=== PATIENT | male | born 1935 | race Caucasian/White ===

== ENCOUNTER 2018-03-02 10:38 | Emergency (ER) | payer MEDICARE, BC ==
[2018-03-02 11:10] VITALS: RESP 18
[2018-03-02] MEDS ORDERED: DICLOXACILLIN 250 MG CAPSULE PO STA (12:05)
--- NOTE | 2018-03-02 12:11 | ED ---
General Adult HPI - General Chief complaint: Extremity Injury, Upper Stated complaint: RT ELBOW PAIN Time Seen by Provider: 03/02/18 12:00 Source: patient, RN notes reviewed Mode of arrival: ambulatory Limitations: no limitations - History of Present Illness Initial comments: This is an 82-year-old male who presents emergency Department with an right olecranon bursitis. Patient states she's had this 3 or 4 times in the past and had it drained per patient states today he came in because the area was a little more tender and slightly reddened which is not normal. Patient states he has an appointment with the orthopedic surgeon on Saturday but didn't want to wait that long. Patient denies any fevers patient denies any chills patient denies any streaking of the redness. Patient states is just at the area of swelling. Patient has full range motion of the elbow he just feels a little tighter when he fully flexes. - Related Data Home Medications Medication Instructions Recorded Confirmed Aspirin 81 mg PO DAILY 10/23/13 03/02/18 Metoprolol Tartrate [Lopressor] 12.5 mg PO DAILY 01/04/15 03/02/18 Multivitamin/Iron/Folic Acid 1 tab PO DAILY 03/02/18 03/02/18 [Centrum Adults Tablet] Previous Rx's Medication Instructions Recorded Dicloxacillin [Dynapen] 500 mg PO Q8H 10 Days capsule 03/02/18 Allergies Allergy/AdvReac Type Severity Reaction Status Date / Time No Known Allergies Allergy Verified 03/02/18 11:51 Review of Systems ROS Statement: Those systems with pertinent positive or pertinent negative responses have been documented in the HPI. ROS Other: All systems not noted in ROS Statement are negative. Past Medical History Past Medical History: Cancer, Hypertension Additional Past Medical History / Comment(s): varicose veins, arrthymia,, hx prostate cancer History of Any Multi-Drug Resistant Organisms: None Reported Past Surgical History: Cardiac Valve Replacement, Heart Catheterization With Stent, Hernia Repair, Orthopedic Surgery, Prostate Surgery, Tonsillectomy Additional Past Surgical History / Comment(s): 3 fingers amputated left hand, cataracts, cardiac valve sugery 07/31/2013. ( one replaced and one repaired). Past Anesthesia/Blood Transfusion Reactions: No Reported Reaction Date of Last Stent Placement:: 07/2013 Past Psychological History: No Psychological Hx Reported Smoking Status: Former smoker Past Alcohol Use History: Occasional Past Drug Use History: None Reported - Past Family History Brother(s) Family Medical History: Cancer General Exam - General Exam Comments Initial Comments: GENERAL Patient is well-developed and well-nourished. Patient is in mild distress. EYES Patient's pupils are equal and round. Extraocular motion is intact SKIN Unremarkable NEURO The patient is alert and oriented 3 PYSCH Patient has normal interpersonal interactions. MUSCULOSKELETAL Patient's right elbow has an olecranon bursitis is slightly erythematous and very minimally tender. Patient's has full range of motion of his elbow Limitations: no limitations Course Vital Signs 03/02/18 11:08 Temperature 97.8 F Pulse Rate 55 L Respiratory 18 Rate Blood Pressure 137/61 O2 Sat by Pulse 98 Oximetry Procedures - Joint Aspiration/Injection Consent Obtained: verbal consent Time Out Performed: Yes Indications: to relieve pressure/pain Side of Body: right Joint Aspirated: elbow Ultrasound Guidance: No Skin Prep: Povidone-Iodine1% Local Anesthesia Used: Lidocaine 1% Amount of Anesthesia Used (mLs): 2 Needle Size Used: 22G Syringe Size Used: 20cc Fluid Obtained: clear Total Fluid Obtained (mls): 10 Patient Tolerated Procedure: well Complications: none Disposition Clinical Impression: Septic olecranon bursitis Disposition: HOME SELF-CARE Condition: Good Additional Instructions: Patient should still follow up with his orthopedic surgeon as soon as possible Patient should return to emergency department if the area of swelling is worse and there is fevers increased redness or increased pain. Patient should apply antibacterial ointment to the area twice a day and keep it wrapped while awake. Prescriptions: Dicloxacillin [Dynapen] 500 mg PO Q8H 10 Days capsule Is patient prescribed a controlled substance at d/c from ED?: No Referrals: Emilio Wright MD [Primary Care Provider] - 1-2 days Time of Disposition: 12:11
[2018-03-02 12:41] VITALS: BP 130/78; PULSE 60; TEMP 97.6
[2018-03-02 13:39] LABS: Appearance,BF Cloudy; Nucleated Cells, Body Fluid 3025 /uL; RBC, Body Fluid 7925 /uL
[2018-03-02 13:43] LABS: Mononuclear WBC,Body Fluid 12 %; Polynuclear WBC,Body Fluid 88 %; Total Cells Counted,Body Fluid 100
== END 2018-03-02 12:40 | disposition home or self-care (01) ==
LOC: EC 10:38
DX: M71.121 Other infective bursitis, right elbow (principal); I10 Essential (primary) hypertension; Z87.891 Personal history of nicotine dependence; Z79.82 Long term (current) use of aspirin; Z79.899 Other long term (current) drug therapy; Z85.46 Personal history of malignant neoplasm of prostate; Z95.2 Presence of prosthetic heart valve; Z95.5 Presence of coronary angioplasty implant and graft; Z98.890 Other specified postprocedural states
CPT/HCPCS: 20605; 87070; 87205; 89050; 99283

== ENCOUNTER → 2018-10-01 | Outpatient (CLI) | payer MEDICARE, BC ==
--- NOTE | 2018-10-08 17:05 | EEG ---
ELECTROENCEPHALOGRAM REPORT DATE OF SERVICE: 10/01/2018 VIDEO ELECTRONYSTAGMOGRAPHIC REPORT: VNG INDICATIONS: Nh[age]old male with dizziness ongoing for one year, sudden onset, slowly improving. Spells occurring 1-2 times a week, lasting 2-3 minutes at a time, and can be precipitated by looking up or head-back position, bending over or head-down position, or movements of the head. He reports bilateral hearing loss. VNG FINDINGS: Saccades shows intact peak velocities, accuracies and latencies. Gaze with fixation shows no nystagmus in any of the directions of gaze, including centrally with vision denied. Tracking shows no significant breakups. Optokinetic nystagmus shows asymmetry at both faster and slower speeds, greater than 50%. Static position testing shows no nystagmus in any of the positions tested in the seated, supine, head-right and head-left. The right side and left side could not be tested due to limited mobility. Dynamic position testing could not be completed due to limited mobility of the patient. Caloric testing shows 8% weakness in the right ear, which is within normal limits. IMPRESSION: VNG testing showing multiple indicators favoring central nervous system dysfunction. Abnormal calorics without signs for vestibulopathy. No nystagmus encountered throughout the record. Dynamic position testing could not be performed due to limited patient mobility, and so benign positional vertigo not excluded by testing. Clinical correlation necessary. TAWANA / AMANDAN: [id number] /
== END | disposition home or self-care (01) ==
LOC: NEUROMAIN 06:29
PROVIDERS: ATTEND Otolaryngology
DX: R42 Dizziness and giddiness (principal)
CPT/HCPCS: 92537; 92540

== ENCOUNTER → 2018-10-29 | Outpatient (CLI) | payer MEDICARE, BC ==
--- NOTE | 2018-10-30 07:56 | MR ---
EXAMINATION TYPE: MR iac wo/w con DATE OF EXAM: 10/29/2018 COMPARISON: CT brain January 04, 2015. MRI brain April 19, 2015. HISTORY: Vertigo, Sensorineural hearing loss. Right-sided hearing loss per patient. TECHNIQUE: Multiplanar, multisequence images of the brain and brainstem is performed without and with IV contras t, utilizing 6.5 mL intravenous Gadavist . Acoustic nerve disorder protocol. FINDINGS: Diffusion weighted images demonstrate no evidence of a recent infarct or other diffusion ab normality. There is no worrisome extra-axial fluid collection diffuse ventricular and sulcal promine nce is redemonstrated. There are focal confluent areas of T2 hyperintensity seen throughout the white matter bilaterally most prominent at periventricular levels. Lesions are present and bases approxima tely the proximal vessel ischemic change in patient of this age. No significant change or progression from prior MRI.. Midline structures demonstrate normal morphology. The craniocervical junction appears within normal limits. Normal vascular flow voids are seen. Incidental dominant right vertebral artery really demons trated. Nasal septum deviated to right of midline. Mild mucosal thickening bilateral ethmoid sinuses is redemonstrated. Globes are intact bilaterally. No suspicious fluid signal bilateral mastoid air cells. Vestibular cochlear complexes are symmetric a nd felt within normal limits. No suspicious enhancing cerebellopontine angle mass is identified bilat erally. IMPRESSION: 1. No suspicious new or acute finding is seen to account for patient's symptoms of right-sided hearin g loss and vertigo. 2. Redemonstration of background mild diffuse cerebral atrophy and moderate to advanced chronic small vessel ischemic change. No significant change or progression from 2016 MRI
== END | disposition home or self-care (01) ==
LOC: RADMRIMAIN 16:19
PROVIDERS: ATTEND Otolaryngology
DX: G31.89 Other specified degenerative diseases of nervous system (principal); I67.82 Cerebral ischemia
CPT/HCPCS: 70553; A9585

== ENCOUNTER 2018-12-29 07:21 | Inpatient (IN) | payer MEDICARE, BC ==
--- NOTE | 2018-12-29 07:51 | ED ---
Wound/Laceration HPI - General Chief Complaint: Wound/Laceration Stated Complaint: finger infection Time Seen by Provider: 12/29/18 07:24 Source: patient, EMS, RN notes reviewed Mode of arrival: EMS Limitations: no limitations - History of Present Illness Initial Comments: 83-year-old male presents emergency Department chief complaint of right hand second digit finger pain, swelling. Patient states that he had an abscess opened up by orthopedics or Dr. Gould. Patient states that he was not discharged with any medications. Patient states that the pain has increased states this has been throbbing and he states he took off the dressing yesterday as directed and noticed that there was redness and drainage. Patient states the redness has increased over nighttime. Patient states that there was an abscess that they drained causing his nail to pop up. - Related Data Home Medications Medication Instructions Recorded Confirmed Metoprolol Tartrate [Lopressor] 12.5 mg PO DAILY 01/04/15 12/29/18 Multivitamin/Iron/Folic Acid 1 tab PO DAILY 03/02/18 12/29/18 [Centrum Adults Tablet] Vit C/E/Zn/Coppr/Lutein/Zeaxan 1 cap PO BID 12/29/18 12/29/18 [Preservision Areds 2 Softgel] Allergies Allergy/AdvReac Type Severity Reaction Status Date / Time No Known Allergies Allergy Verified 12/29/18 08:15 Review of Systems ROS Statement: Those systems with pertinent positive or pertinent negative responses have been documented in the HPI. ROS Other: All systems not noted in ROS Statement are negative. Past Medical History Past Medical History: Cancer, Hypertension Additional Past Medical History / Comment(s): varicose veins, arrthymia,, hx prostate cancer History of Any Multi-Drug Resistant Organisms: None Reported Past Surgical History: Cardiac Valve Replacement, Heart Catheterization With Stent, Hernia Repair, Orthopedic Surgery, Prostate Surgery, Tonsillectomy Additional Past Surgical History / Comment(s): 3 fingers amputated left hand, cataracts, cardiac valve sugery 07/31/2013. ( one replaced and one repaired). Past Anesthesia/Blood Transfusion Reactions: No Reported Reaction Date of Last Stent Placement:: 07/2013 Past Psychological History: No Psychological Hx Reported Smoking Status: Former smoker Past Alcohol Use History: Occasional Past Drug Use History: None Reported - Past Family History Brother(s) Family Medical History: Cancer General Exam Limitations: no limitations General appearance: alert, in no apparent distress Head exam: Present: atraumatic, normocephalic, normal inspection Respiratory exam: Present: normal lung sounds bilaterally. Absent: respiratory distress, wheezes, rales, rhonchi, stridor Cardiovascular Exam: Present: regular rate, normal rhythm, normal heart sounds. Absent: systolic murmur, diastolic murmur, rubs, gallop, clicks Extremities exam: Present: other (Right hand second digit there is an open wound noted on the distal tip with sutures in place, there is small amount of drainage, erythema that extends towards the MCP region, tenderness with palpation limited range of motion secondary to pain, there is some peeling noted of the nail, cap refill less than 2 seconds) Skin exam: Present: warm, dry Course Vital Signs 12/29/18 07:26 Temperature 98.4 F Pulse Rate 83 Respiratory 16 Rate Blood Pressure 160/82 O2 Sat by Pulse 98 Oximetry Medical Decision Making - Medical Decision Making Patient did have x-rays which shows arthritic changes no bony obstruction patient was evaluated by Paola with orthopedics associate in emergency department recommends patient be admitted to Dr. sewell will be placed on antibiotics. Disposition Clinical Impression: Cellulitis of finger of right hand Disposition: ADMITTED IP TO THIS HOSP Condition: Fair Referrals: Emilio Wright MD [Primary Care Provider] - 1-2 days
--- NOTE | 2018-12-29 08:08 | XR ---
EXAMINATION TYPE: XR finger RT DATE OF EXAM: 12/29/2018 COMPARISON: NONE HISTORY: 83-year-old male pain and erythema, cyst removed on Saturday. TECHNIQUE: 3 views coned down right index finger FINDINGS: Underlying degenerative change at the second DIP joint with joint space narrowing and marginal spurri ng as well as subchondral cystic change. There is irregularity of the overlying soft tissue suggestin g a wound. Additional moderate to severe degenerative change at the second and third MCP joints. 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 Soft tissue swelling and irregularity distal aspect of the index finger suggests a wound. No underlyi ng acute osseous abnormality seen.
[2018-12-29] MEDS ORDERED: VANCOMYCIN IV PER PHARMACY 1 EACH MISC MISCELLANE PRN (09:08)
[2018-12-29] MEDS ORDERED: ONDANSETRON 4 MG/2 ML VIAL IVP PRN (09:09)
[2018-12-29] MEDS ORDERED: IBUPROFEN 400 MG TAB PO PRN (09:09)
[2018-12-29] MEDS ORDERED: NALOXONE 0.4 MG/ML 1 ML VIAL IV PRN (09:09)
[2018-12-29] MEDS ORDERED: ACETAMINOPHEN TAB 325 MG TAB PO PRN (09:09)
[2018-12-29] MEDS ORDERED: VANCOMYCIN 1,250 MG in SODIUM CHLORIDE 0.9% 250 ML IVPB STA (09:11)
[2018-12-29 10:09] LABS: Basophils # (A) 0.1 k/uL (0-0.2); Basophils % (A) 1 %; Eosinophils # (A) 0.1 k/uL (0-0.7); Eosinophils % (A) 1 %; HGB 12.4 gm/dL (13.0-17.5); Lymphocytes # (A) 0.3 k/uL (1.0-4.8); Lymphocytes % (A) 3 %; MCH 30.3 pg (25.0-35.0); MCHC 32.7 g/dL (31.0-37.0); MCV 92.8 fL (80.0-100.0); Mean Platelet Volume 8.4; Monocytes # (A) 0.7 k/uL (0-1.0); Monocytes % (A) 6 %; Neutrophils # (A) 9.1 k/uL (1.3-7.7); Neutrophils % (A) 87 %; Platelet Count 173 k/uL (150-450); RBC 4.09 m/uL (4.30-5.90); WBC 10.5 k/uL (3.8-10.6)
[2018-12-29 10:19] LABS: Calcium 8.8 mg/dL (8.4-10.2); Potassium 4.6 mmol/L (3.5-5.1)
[2018-12-29] MEDS: HYDROcodone/APAP 5-325MG 1 EACH TAB PO PRN ×2 (10:22→14:40)
--- NOTE | 2018-12-29 14:53 | P.HPOR ---
History of Present Illness H&P Date: 12/29/18 Chief Complaint: Right index finger cellulitis The patient is an 83 year old male who is known to our practice and underwent a right index finger DIP ganglion cyst excision and joint debridement on 12/26/[address] Marshall Gould at [facility]. He states the finger was feeling ok until yesterday when he noticed increased swelling and redness. He removed the operative dressing as instructed yesterday and noticed the finger was very swollen and redness extending into the base of the finger. There is stiffness and some numbness to the finger as well. He has been experiencing chills and shaking since yesterday. Denies fevers. He proceeded to the emergency department this morning. We were called for further evaluation and management. Review of Systems Constitutional: Reports chills, Denies fatigue, Denies fever Cardiovascular: Denies chest pain, Denies shortness of breath Respiratory: Denies cough Gastrointestinal: Denies abdominal pain, Denies diarrhea, Denies nausea, Denies vomiting Musculoskeletal: right: hand pain, hand stiffness, hand swelling Past Medical History Past Medical History: Cancer, Hypertension Additional Past Medical History / Comment(s): varicose veins, arrthymia,, hx prostate cancer History of Any Multi-Drug Resistant Organisms: None Reported Past Surgical History: Cardiac Valve Replacement, Heart Catheterization With Stent, Hernia Repair, Orthopedic Surgery, Prostate Surgery, Tonsillectomy Additional Past Surgical History / Comment(s): 3 fingers amputated left hand, cataracts, cardiac valve sugery 07/31/2013. ( one replaced and one repaired). Past Anesthesia/Blood Transfusion Reactions: No Reported Reaction Date of Last Stent Placement:: 07/2013 Past Psychological History: No Psychological Hx Reported Smoking Status: Former smoker Past Alcohol Use History: Occasional Past Drug Use History: None Reported - Past Family History Brother(s) Family Medical History: Cancer Medications and Allergies Home Medications Medication Instructions Recorded Confirmed Type Metoprolol Tartrate [Lopressor] 12.5 mg PO DAILY 01/04/15 12/29/18 History Multivitamin/Iron/Folic Acid 1 tab PO DAILY 03/02/18 12/29/18 History [Centrum Adults Tablet] Vit C/E/Zn/Coppr/Lutein/Zeaxan 1 cap PO BID 12/29/18 12/29/18 History [Preservision Areds 2 Softgel] Allergies Allergy/AdvReac Type Severity Reaction Status Date / Time No Known Allergies Allergy Verified 12/29/18 08:15 Physical Examination The patient is an 83 y/o male in no acute distress. He is alert and oriented x3. Exam of the right index finger reveals diffuse swelling of the entire finger. Erythema is present and extends into the distal hand at the base of the right index finger. No proximal swelling or red streaking noted. Sanguineous drainage is present to the incision site. No purulent drainage or fluid collection noted. One suture is in place. There is limited ROM of the finger due to pain, guarding and swelling. Decreased sensation to the finger is present. The finger is warm and well perfused. Capillary refill <2 seconds. Results Two views of the right index finger reveal arthritic changes to the DIP joint. No bony destruction or fracture seen. - Labs Labs: Abnormal Lab Results - Last 24 Hours (Table) 12/29/18 12/29/18 Range/Units 09:47 09:47 RBC 4.09 L (4.30-5.90) m/uL Hgb 12.4 L (13.0-17.5) gm/dL Hct 38.0 L (39.0-53.0) % Neutrophils # 9.1 H (1.3-7.7) k/uL Lymphocytes # 0.3 L (1.0-4.8) k/uL Chloride 109 H (98-107) mmol/L Carbon Dioxide 20 L (22-30) mmol/L Creatinine 1.27 H (0.66-1.25) mg/dL H & H 12/29/18 Range/Units 09:47 Hgb 12.4 L (13.0-17.5) gm/dL Hct 38.0 L (39.0-53.0) % Result Diagrams: 12/29/18 09:47 12/29/18 09:47 Assessment and Plan (1) Pain in right hand Current Visit: Yes Status: Acute Code(s): M79.641 - PAIN IN RIGHT HAND SNOMED Code(s): 94592230 (2) Cellulitis of finger of right hand Current Visit: Yes Status: Acute Code(s): L03.011 - CELLULITIS OF RIGHT FINGER SNOMED Code(s): 62652184 Plan: The clinical and x-ray findings were discussed with the patient. The patient has been examined by Dr. Marshall Gould as well. We are recommending admission for IV antibiotics and evaluation by infectious disease. A consult for Dr. Moreno has been placed. He will be started on Vancomycin until seen by ID. The one suture was removed today and the wound was cleansed. Moist heat compressions have been ordered. The wound can be cleansed with soap and water at least daily. Range of motion of the finger was encouraged. Surgical drainage and debridement may be needed if he fails to improve with the current treatment plan. We will continue to follow the patient closely and make further recommendations depending on his course.
[2018-12-29] MEDS ORDERED: CALCIUM CARBONATE 500 MG CHEWABLE PO PRN (18:36)
[2018-12-29] MEDS: VIT A,C & E-LUTEIN-MINERALS 1 EACH TAB PO SCH (22:14)
--- NOTE | 2018-12-29 23:35 | P.CONS ---
History of Present Illness - Reason for Consult Consult date: 12/29/18 - History of Present Illness 83-year-old male who's been having difficulties with his right hand. He was having difficulty with a ganglion cyst on the index finger. Last week he underwent a debridement to this area and was doing relatively well until the day before he presents to Hospital. At that point in time he noticed some significant increasing discomfort swelling to the hand finger and the onset of stiffness some increasing numbness and feeling very poorly. He developed a fever with chills and rigors because they presents to Hospital for further evaluation. The patient is alert evidence of the significant swelling erythema and tenderness to that index finger. He is available orthopedics and there is been some manipulation. There has been some drainage which is now decreased. He's feeling better since coming to hospital. He is denying significant nausea or emesis but appetite is poor. He has not had this type of trouble in the past. Review of Systems HEENT:Denies headache or acute visual change. Denies sinus or mouth discomforts. Denies neck stiffness or pain. Denies significant oral cavity pain. Denies difficulty on swallowing. Lungs: Denies significant shortness of breath, cough, sputum production, or hemoptysis. Cardiovascular: Denies significant shortness of breath, chest pain, chest wall pain, orthopnea, dyspnea on exertion, syncope Gastrointestinal:Denies nausea, vomiting, diarrhea, constipation, hematemesis, melena, hematochezia. No no significant change of bowel habit noticed. Musculoskeletal: Pain and swelling to the right hand Skin: Redness to the right index finger and onto the dorsum of the hand Neuro: Denies headache or visual change. Denies any new onset weakness or difficulty with ambulation. Denies falls or seizures. Psychiatric:Denies anxiety or depression. Endocrine: Denies significant fatigue, denies significant weight loss or weight gain. Past Medical History Past Medical History: Cancer, Hypertension Additional Past Medical History / Comment(s): varicose veins, arrthymia,, hx prostate cancer History of Any Multi-Drug Resistant Organisms: None Reported Past Surgical History: Cardiac Valve Replacement, Heart Catheterization With Stent, Hernia Repair, Orthopedic Surgery, Prostate Surgery, Tonsillectomy Additional Past Surgical History / Comment(s): 3 fingers amputated left hand, cataracts, cardiac valve sugery 07/31/2013. ( one replaced and one repaired). Past Anesthesia/Blood Transfusion Reactions: No Reported Reaction Date of Last Stent Placement:: 07/2013 Past Psychological History: No Psychological Hx Reported Additional Psychological History / Comment(s): Retired. No experience. No recent travel. Has stopped tobacco smoking. No animal exposures Smoking Status: Former smoker Past Alcohol Use History: Occasional Past Drug Use History: None Reported - Past Family History Brother(s) Family Medical History: Cancer Medications and Allergies Home Medications and Allergies Comment(s): Current Medications Acetaminophen (Tylenol Tab) 650 mg PO Q6HR PRN PRN Reason: Mild Pain or Fever > 100.5 Last Admin: 12/29/18 13:20 Dose: 650 mg Documented by: Hydrocodone Bitart/Acetaminophen ([place] 5-325) 1 each PO Q4HR PRN PRN Reason: Moderate Pain Last Admin: 12/29/18 14:40 Dose: 1 each Documented by: Calcium Carbonate/Glycine (Tums) 1,000 mg PO QID PRN PRN Reason: Heartburn Last Admin: 12/29/18 19:49 Dose: 1,000 mg Documented by: Vancomycin HCl 1,250 mg/ (Sodium Chloride) 250 mls @ 125 mls/hr IVPB Q18H [facility] Ibuprofen (Motrin) 400 mg PO Q6HR PRN PRN Reason: Mild Pain or Fever > 100.5 Metoprolol Tartrate (Lopressor) 12.5 mg PO DAILY [facility] Miscellaneous Information (Pharmacy To Dose Iv Vancomycin) 1 each MISCELLANE DIRECTED PRN PRN Reason: Per Protocol Multivitamins (Theragran) 1 each PO DAILY [facility] Multivitamins/Minerals (Ivite) 1 each PO BID [facility] Last Admin: 12/29/18 22:14 Dose: 1 each Documented by: Naloxone HCl (Narcan) 0.2 mg IV Q2M PRN PRN Reason: Opioid Reversal Ondansetron HCl (Zofran) 4 mg IVP Q8HR PRN PRN Reason: Nausea And Vomiting Home Medications Medication Instructions Recorded Confirmed Type Metoprolol Tartrate [Lopressor] 12.5 mg PO DAILY 01/04/15 12/29/18 History Multivitamin/Iron/Folic Acid 1 tab PO DAILY 03/02/18 12/29/18 History [Centrum Adults Tablet] Vit C/E/Zn/Coppr/Lutein/Zeaxan 1 cap PO BID 12/29/18 12/29/18 History [Preservision Areds 2 Softgel] Allergies Allergy/AdvReac Type Severity Reaction Status Date / Time No Known Allergies Allergy Verified 12/29/18 08:15 Physical Exam Vitals: Vital Signs Temp Pulse Pulse Resp BP BP BP 12/29/18 21:45 99.3 F 77 20 135/71 12/29/18 14:50 97.4 F L 84 16 142/69 12/29/18 14:00 98.2 F 70 16 146/71 12/29/18 13:00 72 17 127/65 12/29/18 12:00 72 17 120/64 12/29/18 11:00 70 17 136/72 12/29/18 10:21 71 16 12/29/18 10:00 74 16 136/72 12/29/18 07:26 98.4 F 83 16 160/82 Pulse Ox 12/29/18 21:45 95 12/29/18 14:50 96 12/29/18 14:00 80 L 12/29/18 13:00 97 12/29/18 12:00 98 12/29/18 11:00 98 12/29/18 10:21 97 12/29/18 10:00 98 12/29/18 07:26 98 Intake and Output 12/29/18 12/29/18 12/30/18 14:59 22:59 06:59 Other: Voiding Method Toilet Urinal # Voids 1 Weight 65.771 kg Pleasant 83-year-old male of thin build not in distress. HEENT: Anicteric conjunctiva are pink and moist nasal mucosa grossly intact without significant lesions, there is no thrush. Neck: The neck is supple without significant lymphadenopathy or thyromegaly. Lungs: Good bilateral air entry without significant crackles or wheezing. There is no significant bronchial sounds. There is no egophony or dullness. Heart: Regular rate and rhythm with an audible S1-S2, no S3 no S4. There is no significant murmur click or rub, PMI was nondisplaced. Abdomen: Positive bowel sounds soft and nontender without palpable masses or organomegaly. There was no guarding or rebound. Extremities: The upper extremities reveal evidence of the significant swelling to the right index finger with some ascending erythema to the dorsum of the hand. However there is no significant ascending lymphangitis. There is no tender epitrochlear lymph node and there is no axillary lymphadenopathy to the right axilla. No other abnormal lymph nodes are noted. The lower extremities have no open wound. Neuro: Awake alert oriented to person place and time. There are no acute new gross focal sensory motor deficits. Results CBC & Chem 7: 12/29/18 09:47 12/29/18 09:47 Labs: Abnormal Lab Results - Last 24 Hours (Table) 12/29/18 12/29/18 Range/Units 09:47 09:47 RBC 4.09 L (4.30-5.90) m/uL Hgb 12.4 L (13.0-17.5) gm/dL Hct 38.0 L (39.0-53.0) % Neutrophils # 9.1 H (1.3-7.7) k/uL Lymphocytes # 0.3 L (1.0-4.8) k/uL Chloride 109 H (98-107) mmol/L Carbon Dioxide 20 L (22-30) mmol/L Creatinine 1.27 H (0.66-1.25) mg/dL Laboratory Results WBC 10.5 k/uL (3.8-10.6) 12/29/18 09:47 RBC 4.09 m/uL (4.30-5.90) L 12/29/18 09:47 Hgb 12.4 gm/dL (13.0-17.5) L 12/29/18 09:47 Hct 38.0 % (39.0-53.0) L 12/29/18 09:47 MCV 92.8 fL (80.0-100.0) 12/29/18 09:47 MCH 30.3 pg (25.0-35.0) 12/29/18 09:47 MCHC 32.7 g/dL (31.0-37.0) 12/29/18 09:47 RDW 13.0 % (11.5-15.5) 12/29/18 09:47 Plt Count 173 k/uL (150-450) 12/29/18 09:47 Neutrophils % 87 % 12/29/18 09:47 Lymphocytes % 3 % 12/29/18 09:47 Monocytes % 6 % 12/29/18 09:47 Eosinophils % 1 % 12/29/18 09:47 Basophils % 1 % 12/29/18 09:47 Neutrophils # 9.1 k/uL (1.3-7.7) H 12/29/18 09:47 Lymphocytes # 0.3 k/uL (1.0-4.8) L 12/29/18 09:47 Monocytes # 0.7 k/uL (0-1.0) 12/29/18 09:47 Eosinophils # 0.1 k/uL (0-0.7) 12/29/18 09:47 Basophils # 0.1 k/uL (0-0.2) 12/29/18 09:47 Sodium 138 mmol/L (137-145) 12/29/18 09:47 Potassium 4.6 mmol/L (3.5-5.1) 12/29/18 09:47 Chloride 109 mmol/L (98-107) H 12/29/18 09:47 Carbon Dioxide 20 mmol/L (22-30) L 12/29/18 09:47 Anion Gap 9 mmol/L 12/29/18 09:47 BUN 20 mg/dL (9-20) 12/29/18 09:47 Creatinine 1.27 mg/dL (0.66-1.25) H 12/29/18 09:47 Est GFR (CKD-EPI)AfAm 60 (>60 ml/min/1.73 sqM) 12/29/18 09:47 Est GFR (CKD-EPI)NonAf 52 (>60 ml/min/1.73 sqM) 12/29/18 09:47 Glucose 95 mg/dL (74-99) 12/29/18 09:47 Plasma Lactic Acid Donaldo 0.8 mmol/L (0.7-2.0) 12/29/18 09:47 Calcium 8.8 mg/dL (8.4-10.2) 12/29/18 09:47 Assessment and Plan (1) Cellulitis of finger of right hand Narrative/Plan: 83-year-old presents to Hospital with recent pain and swelling difficulties with use of his right hand and index finger after his recent ganglion cyst removal. There was edema and erythema and consequently cultures were obtained and the patient was admitted to hospital initiated vancomycin therapy. This is appropriate this point in time while cultures are pending. We'll await further input from the orthopedic team as to the depth of the current problem. If any debridement is been performed the depth of this would be helpful if there is tenosynovitis or osteomyelitis without finding the course of antibiotic therapy. If no further data available a bone scan will be requested to elucidate the extent of the difficulty. Pain control is adequate at this point in time. He is receiving a multivitamin. He knows elevate the hand at rest. Current Visit: Yes Status: Acute Code(s): L03.011 - CELLULITIS OF RIGHT FINGER SNOMED Code(s): 43451914 (2) Pain in right hand Current Visit: Yes Status: Acute Code(s): M79.641 - PAIN IN RIGHT HAND SNOMED Code(s): 20008474
[2018-12-30] MEDS: VANCOMYCIN 1,250 MG in SODIUM CHLORIDE 0.9% 250 ML IVPB SCH ×2 (04:09→22:49)
[2018-12-30] MEDS: HYDROcodone/APAP 5-325MG 1 EACH TAB PO PRN ×3 (04:13→19:03)
--- NOTE | 2018-12-30 08:40 | P.PN ---
Subjective Progress Note Date: 12/30/18 Principal diagnosis: Right index finger cellulitis The patient is an 83 y/o male who we admitted yesterday for a post-operative infection/cellulitis to the right index finger. He was started on Vancomycin yesterday and moist heat compression were ordered. Today, he states he is feeling better and the chills have resolved. The redness in the finger has improved as well. Dr. Moreno evaluated the patient yesterday and recommended continuing the Vanco. A bone scan will possibly be ordered if surgery is not planned to evaluate the extent of the infection. No new complaints or issues today. Objective - Vital Signs Vital signs: Vital Signs Temp 98.5 F 12/30/18 04:20 Pulse 70 12/30/18 04:20 Resp 20 12/30/18 04:20 BP 124/72 12/30/18 04:20 Pulse Ox 97 12/30/18 04:20 Intake & Output 12/29/18 12/30/18 12/30/18 18:59 06:59 18:59 Weight 65.771 kg Other: Voiding Method Toilet Urinal # Voids 2 - Exam The patient is an 83-year-old male who is in no acute distress. He is alert and oriented 3. Exam of the right index finger reveals continued swelling the entire finger. Erythema has receded to the mid proximal phalanx level. No proximal swelling or red streaking noted. Dressing removed. There is some maceration around the incision site but no active drainage. No purulence noted. There is continued with limited range of motion of the fingers due to pain and swelling. Decreased sensation to the fingertip is present. No tenderness along the flexor tendon sheath. Tenderness to the fingertip is present as expected. There is warm and well-perfused. Capillary refill less than 2 seconds. - Labs CBC & Chem 7: 12/29/18 09:47 12/29/18 09:47 Labs: Abnormal Lab Results - Last 24 Hours (Table) 12/29/18 12/29/18 Range/Units 09:47 09:47 RBC 4.09 L (4.30-5.90) m/uL Hgb 12.4 L (13.0-17.5) gm/dL Hct 38.0 L (39.0-53.0) % Neutrophils # 9.1 H (1.3-7.7) k/uL Lymphocytes # 0.3 L (1.0-4.8) k/uL Chloride 109 H (98-107) mmol/L Carbon Dioxide 20 L (22-30) mmol/L Creatinine 1.27 H (0.66-1.25) mg/dL Assessment and Plan (1) Pain in right hand Current Visit: Yes Status: Acute Code(s): M79.641 - PAIN IN RIGHT HAND SNOMED Code(s): 66546903 (2) Cellulitis of finger of right hand Current Visit: Yes Status: Acute Code(s): L03.011 - CELLULITIS OF RIGHT FIN [place] SNOMED Code(s): 49961115 Plan: The clinical and x-ray findings were discussed with the patient. The case was discussed with Dr. Marshall Gould today. We do not suspect infective flexor tenosynovitis or osteomyelitis at this time. No surgical intervention is planned. We are recommending continued IV antibiotics per infectious disease r ecommendation. Moist heat compressions have been ordered but have not been completed since admission. The wound can be cleansed with soap and water throughout the day and allowed to dry to air. A bandaid may be applied if drainage is present. Range of motion and elevation of the finger was encou raged. He appears to be improving with antibiotics. Surgical drainage and debridement may be needed if he fails to improve with the current treatment plan. We will continue to follow the patient closely and make further recommendations depending on his course.
[2018-12-30] MEDS: VIT A,C & E-LUTEIN-MINERALS 1 EACH TAB PO SCH ×2 (08:56→19:56)
[2018-12-30] MEDS: MULTIVITAMINS, THERA 1 EACH TAB PO SCH (08:56)
[2018-12-30] MEDS: METOPROLOL TARTRATE 12.5 MG TAB PO SCH (08:56)
--- NOTE | 2018-12-30 17:47 | P.CONS ---
History of Present Illness - Reason for Consult Consult date: 12/30/18 HTN Requesting physician: Asael Gould - Chief Complaint right index finger swelling - History of Present Illness Patient is an 83-year-old male with a past medical history of valvular heart disease status post repair [facility] not requiring chronic anticoagulation, hypertension, and prior prostate cancer who underwent right index finger DIP ganglion cyst excision with joint debridement on 12/26/[address] Marshall cleveland at the [facility]. Apparently he left his dressing in place and when he took down his dressing he noticed right index finger swelling, pain, and inability to flex his right index finger. He also report reported some chills and riders. He subsequently went to the emergency department. On arrival to the ER he was slightly hypertensive with a blood pressure of 160/82 laboratory analysis showed a white blood cell count of 10.5, hemoglobin 12.4, and creatinine of 1.27. There was concern for infection in the right index finger. He was subsequently started on IV antibiotics and admitted to the orthopedic service. Infectious disease was consulted. We were notified of the consult on this patient on 12/30 for medical management. Patient seen and examined at bedside. He recounts the story as dictated above. He reports that his index finger pain has improved in the last 24 hours, he also reports he is having some better movement of the index finger. He denies any chest pain, shortness of breath, nausea, vomiting, diarrhea, or difficulty with urination. He was initially feeling chills and riders however those have resolved. He reports his overall fatigue is slightly improved. Review of Systems Pertinent positives and negatives as discussed in HPI, a complete review of systems was performed and all other systems are negative. 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 ( one replaced and one repaired). Past Anesthesia/Blood Transfusion Reactions: No Reported Reaction Date of Last Stent Placement:: 07/2013 Past Psychological History: No Psychological Hx Reported Additional Psychological History / Comment(s): Retired. No experience. No recent travel. Has stopped tobacco smoking. No animal exposures Smoking Status: Current every day smoker Past Alcohol Use History: Occasional Past Drug Use History: None Reported - Past Family History Brother(s) Family Medical History: Cancer Medications and Allergies Home Medications Medication Instructions Recorded Confirmed Type Metoprolol Tartrate [Lopressor] 12.5 mg PO DAILY 01/04/15 12/29/18 History Multivitamin/Iron/Folic Acid 1 tab PO DAILY 03/02/18 12/29/18 History [Centrum Adults Tablet] Vit C/E/Zn/Coppr/Lutein/Zeaxan 1 cap PO BID 12/29/18 12/29/18 History [Preservision Areds 2 Softgel] Allergies Allergy/AdvReac Type Severity Reaction Status Date / Time No Known Allergies Allergy Verified 12/29/18 08:15 Physical Exam Osteopathic Statement: *. No significant issues noted on an osteopathic structural exam other than those noted in the History and Physical/Consult. Vitals: Vital Signs Temp Pulse Resp BP BP Pulse Ox 12/30/18 04:20 98.5 F 70 20 124/72 97 12/29/18 21:45 99.3 F 77 20 135/71 95 12/29/18 14:50 97.4 F L 84 16 142/69 96 Intake and Output 12/29/18 12/30/18 12/30/18 22:59 06:59 14:59 Intake Total 200 Balance 200 Intake: Oral 200 Other: Voiding Method Toilet Urinal # Voids 1 2 2 General: non toxic, no distress, appears younger than stated age, normal weight Derm: right index finger with erythema and purple discoloration, no drainage + warmth, no unusual ecchymoses, warm, dry Head: atraumatic, normocephalic, symmetric Eyes: EOMI, no lid lag, anicteric sclera, pupils equal round reactive to light ENT: Nose and ears atraumatic, no thrush, no pharyngeal erythema Neck: No thyromegaly, no cervical lymphadenopathy, trachea midline, supple Mouth: no lip lesion, mucus membranes moist Cardiovascular: S1S2 reg, no murmur, positive posterior tibial pulse bilateral, no edema, capillary refill less than 2 seconds Lungs: CTA bilateral, no rhonchi, no rales , no accessory muscle use Abdominal: soft, nontender to palpation, no guarding, no appreciable organomegaly, normal bowel sounds Ext: Right indes finger with decreased flexion at DIP and PIP, no gross muscle atrophy, muscle strength 5 out of 5 in all 4 extremities grossly, no contractures, Neuro: CN II-XI grossly intact, light touch intact all 4 extremities, finger to nose within normal limits, Psych: Alert, oriented, appropriate affect Results CBC & Chem 7: 12/29/18 09:47 12/30/18 09:33 Labs: Abnormal Lab Results - Last 24 Hours (Table) 12/30/18 Range/Units 09:33 Creatinine 1.31 H (0.66-1.25) mg/dL Microbiology - Last 24 Hours (Table) 12/29/18 09:47 Blood Culture - Preliminary Blood No Growth after 24 hours Assessment and Plan Assessment: Cellulitis of the right index finger - ID recs appreciated: on vanco and ceftazidime, consider bone scan if no surgery planned - pain control - await blood cultures - if needs surgery please obtain cultures HTN, controlled -Continue Lopressor -Follow blood pressures Probable CKD -Appears that creatinine was elevated back to 2019 -Follow basic metabolic profile closely in light of need for Vanco -Creatinine appears better than it was in 2017 -If elevation occurs we'll consult nephrology History of valvular repair -Does not require anticoagulation at home Thank you for allowing us to participate in the care of this patient. Do not hesitate to contact us with questions. Someone can be reached from the [facility] hospitalist group at all hours of the day on perfect serve or at [phone].
[2018-12-30] MEDS ORDERED: traMADol 50 MG TAB PO STA (22:41)
--- NOTE | 2018-12-30 23:17 | P.PN ---
Subjective Progress Note Date: 12/30/18 83-year-old male who's been having difficulties with his right hand. He was having difficulty with a ganglion cyst on the index finger. Last week he underwent a debridement to this area and was doing relatively well until the day before he presents to Hospital. At that point in time he noticed some significant increasing discomfort swelling to the hand finger and the onset of stiffness some increasing numbness and feeling very poorly. He developed a fever with chills and rigors because they presents to Hospital for further evaluation. The patient is alert evidence of the significant swelling erythema and tenderness to that index finger. He is available orthopedics and there is been some manipulation. There has been some drainage which is now decreased. He's feeling better since coming to hospital. He is denying significant nausea or emesis but appetite is poor. He has not had this type of trouble in the past. 12/30/2018 the laboratory is now called a positive blood culture for gram- negative bacilli. With this ceftazidime all was added pending further data. The patient is being evaluated by orthopedic surgery and there is plans for the open incision and drainage to the site in the morning. Objective - Vital Signs Vital signs: Vital Signs Temp 98.1 F 12/30/18 15:00 Pulse 62 12/30/18 15:00 Resp 16 12/30/18 15:00 BP 127/67 12/30/18 15:00 Pulse Ox 95 12/30/18 15:00 Intake & Output 12/30/18 12/30/18 12/31/18 06:59 18:59 06:59 Intake Total 320 Balance 320 Intake: Oral 320 Other: Voiding Method Toilet Urinal Urinal # Voids 2 2 - Exam Pleasant 83-year-old male of thin build not in distress. HEENT: Anicteric conjunctiva are pink and moist nasal mucosa grossly intact without significant lesions, there is no thrush. Neck: The neck is supple without significant lymphadenopathy or thyromegaly. Lungs: Good bilateral air entry without significant crackles or wheezing. There is no significant bronchial sounds. There is no egophony or dullness. Heart: Regular rate and rhythm with an audible S1-S2, no S3 no S4. There is no significant murmur click or rub, PMI was nondisplaced. Abdomen: Positive bowel sounds soft and nontender without palpable masses or organomegaly. There was no guarding or rebound. Extremities: The upper extremities reveal evidence of the significant swelling to the right index finger with some ascending erythema to the dorsum of the hand. However there is no significant ascending lymphangitis. There is no tender epitrochlear lymph node and there is no axillary lymphadenopathy to the right axilla. No other abnormal lymph nodes are noted. The lower extremities have no open wound. Neuro: Awake alert oriented to person place and time. There are no acute new g ross focal sensory motor deficits. - Labs CBC & Chem 7: 12/29/18 09:47 12/30/18 09:33 Labs: Abnormal Lab Results - Last 24 Hours (Table) 12/30/18 Range/Units 09:33 Creatinine 1.31 H (0.66-1.25) mg/dL Microbiology - Last 24 Hours (Table) 12/29/18 09:47 Blood Culture Gram Stain - Preliminary Blood Blood Culture - Preliminary Staphylococcus aureus 12/29/18 09:47 Blood Culture - Final Blood Laboratory Results WBC 10.5 k/uL (3.8-10.6) 12/29/18 09:47 RBC 4.09 m/uL (4.30-5.90) L 12/29/18 09:47 Hgb 12.4 gm/dL (13.0-17.5) L 12/29/18 09:47 Hct 38.0 % (39.0-53.0) L 12/29/18 09:47 MCV 92.8 fL (80.0-100.0) 12/29/18 09:47 MCH 30.3 pg (25.0-35.0) 12/29/18 09:47 MCHC 32.7 g/dL (31.0-37.0) 12/29/18 09:47 RDW 13.0 % (11.5-15.5) 12/29/18 09:47 Plt Count 173 k/uL (150-450) 12/29/18 09:47 Neutrophils % 87 % 12/29/18 09:47 Lymphocytes % 3 % 12/29/18 09:47 Monocytes % 6 % 12/29/18 09:47 Eosinophils % 1 % 12/29/18 09:47 Basophils % 1 % 12/29/18 09:47 Neutrophils # 9.1 k/uL (1.3-7.7) H 12/29/18 09:47 Lymphocytes # 0.3 k/uL (1.0-4.8) L 12/29/18 09:47 Monocytes # 0.7 k/uL (0-1.0) 12/29/18 09:47 Eosinophils # 0.1 k/uL (0-0.7) 12/29/18 09:47 Basophils # 0.1 k/uL (0-0.2) 12/29/18 09:47 Sodium 138 mmol/L (137-145) 12/29/18 09:47 Potassium 4.6 mmol/L (3.5-5.1) 12/29/18 09:47 Chloride 109 mmol/L (98-107) H 12/29/18 09:47 Carbon Dioxide 20 mmol/L (22-30) L 12/29/18 09:47 Anion Gap 9 mmol/L 12/29/18 09:47 BUN 20 mg/dL (9-20) 12/29/18 09:47 Creatinine 1.31 mg/dL (0.66-1.25) H 12/30/18 09:33 Est GFR (CKD-EPI)AfAm 58 (>60 ml/min/1.73 sqM) 12/30/18 09:33 Est GFR (CKD-EPI)NonAf 50 (>60 ml/min/1.73 sqM) 12/30/18 09:33 Glucose 95 mg/dL (74-99) 12/29/18 09:47 Plasma Lactic Acid Donaldo 0.8 mmol/L (0.7-2.0) 12/29/18 09:47 Calcium 8.8 mg/dL (8.4-10.2) 12/29/18 09:47 Microbiology 12/29/18 09:47 Blood Blood Culture Gram Stain - Preliminary 12/29/18 09:47 Blood Blood Culture - Preliminary Staphylococcus aureus 12/29/18 09:47 Blood Blood Culture - Final Assessment and Plan (1) Cellulitis of finger of right hand Narrative/Plan: 83-year-old presents to Hospital with recent pain and swelling difficulties with use of his right hand and index finger after his recent ganglion cyst removal. There was edema and erythema and consequently cultures were obtained and the patient was admitted to hospital initiated vancomycin therapy. This is appropriate this point in time while cultures are pending. We'll await further input from the orthopedic team as to the depth of the current problem. If any debridement is been performed the depth of this would be helpful if there is tenosynovitis or osteomyelitis without finding the course of antibiotic therapy. If no further data available a bone scan will be requested to elucidate the extent of the difficulty. Pain control is adequate at this point in time. He is receiving a multivitamin. He knows elevate the hand at rest. 12/30/2018 the patient still quite uncomfortable. There are now plans for the surgical incision and drainage to the site clean out and debrided the area. Deep cultures will be helpful. The laboratory is called gram-negative bacilli and consequently ceftazidime was added to the therapy. Await the final identification. This will help determine the antibiotic therapy at home. Given that this is a joint involvement we'll treat this as septic arthritis and will require a 6 week course of therapy. Wound care will be determined after the surgical intervention. Patient is instructed in the importance of a high protein diet to allow his healing. Bone scan was requested to evaluate the extent of infection however if he goes to the OR In the morning this will be performed. Current Visit: Yes Status: Acute Code(s): L03.011 - CELLULITIS OF RIGHT FINGER SNOMED Code(s): 44281187 (2) Pain in right hand Current Visit: Yes Status: Acute Code(s): M79.641 - PAIN IN RIGHT HAND SNOMED Code(s): 73642256
[2018-12-31] MEDS: HYDROcodone/APAP 5-325MG 1 EACH TAB PO PRN ×3 (05:11→16:16)
[2018-12-31] MEDS: MULTIVITAMINS, THERA 1 EACH TAB PO SCH (07:30)
[2018-12-31] MEDS: VIT A,C & E-LUTEIN-MINERALS 1 EACH TAB PO SCH ×2 (07:30→21:17)
[2018-12-31] MEDS: METOPROLOL TARTRATE 12.5 MG TAB PO SCH (08:24)
[2018-12-31 09:43] LABS: HCT 39.4 % (39.0-53.0); HGB 13.2 gm/dL (13.0-17.5); MCH 30.8 pg (25.0-35.0); MCHC 33.5 g/dL (31.0-37.0); Mean Platelet Volume 8.3; Platelet Count 256 k/uL (150-450); RBC 4.28 m/uL (4.30-5.90); RDW 12.7 % (11.5-15.5); WBC 6.9 k/uL (3.8-10.6)
[2018-12-31 10:06] LABS: Calcium 9.1 mg/dL (8.4-10.2); Potassium 4.1 mmol/L (3.5-5.1)
--- NOTE | 2018-12-31 11:22 | P.PN ---
Subjective Progress Note Date: 12/31/18 Principal diagnosis: Right index finger swelling Patient is an 83-year-old male with a past medical history of valvular heart disease status post repair [facility] not requiring chronic anticoagulation, hypertension, and prior prostate cancer who underwent right index finger DIP ganglion cyst excision with joint debridement on 12/26/[address] Marshall Guold at the [facility]. Apparently he left his dressing in place and when he took down his dressing he noticed right index finger swelling, pain, and inability to flex his right index finger. He also report reported some chills and riders. He subsequently went to the emergency department. On arrival to the ER he was slightly hypertensive with a blood pressure of 160/82 laboratory analysis showed a white blood cell count of 10.5, hemoglobin 12.4, and creatinine of 1.27. There was concern for infection in the right index finger. He was subsequently started on IV antibiotics and admitted to the orthopedic service. Infectious disease was consulted and initial culture results are joint gram-negative bacilli and antibiotics were broadened to add cefepime to vancomycin. Blood cultures resulted on 12/29 with staph aureus. Patient bone scan started 12/31. Plan is for OR I&D 12/31 Patient seen and examined at bedside. He is still having some pain in the finger, tolerated bone scan well, no nausea, no vomiting, no diarrhea. No other questions at this time. Objective - Vital Signs Vital signs: Vital Signs Temp 98.9 F 12/31/18 05:00 Pulse 67 12/31/18 05:00 Resp 18 12/31/18 05:00 BP 161/75 12/31/18 05:00 Pulse Ox 96 12/31/18 05:00 Intake & Output 12/30/18 12/31/18 12/31/18 18:59 06:59 18:59 Intake Total 320 425 Output Total 400 Balance 320 25 Intake: Oral 320 425 Output: Urine 400 Other: Voiding Method Urinal # Voids 2 1 1 - Exam General: non toxic, no distress, appears younger than stated age Derm: Dressing in place over right index finger, warm, dry Head: atraumatic, normocephalic, symmetric Eyes: EOMI, no lid lag, anicteric sclera Mouth: no lip lesion, mucus membranes moist Cardiovascular: S1S2 reg, no murmur, positive posterior tibial pulse bilateral, Lungs: decreased bs bilateral, no rhonchi, no rales , no accessory muscle use Abdominal: soft, nontender to palpation, no guarding, no appreciable organomegaly Ext: no gross muscle atrophy, no edema, no contractures Neuro: CN II-XI grossly intact, no focal neuro deficits Psych: Alert, oriented, appropriate affect - Labs CBC & Chem 7: 12/31/18 09:04 12/31/18 09:04 Labs: Abnormal Lab Results - Last 24 Hours (Table) 12/31/18 12/31/18 Range/Units 09:04 09:04 RBC 4.28 L (4.30-5.90) m/uL Sodium 136 L (137-145) mmol/L Carbon Dioxide 20 L (22-30) mmol/L Glucose 107 H (74-99) mg/dL Microbiology - Last 24 Hours (Table) 12/29/18 09:47 Blood Culture Gram Stain - Preliminary Blood Blood Culture - Preliminary Staphylococcus aureus 12/29/18 09:47 Blood Culture - Final Blood Assessment and Plan Assessment: Cellulitis of the right index finger with staph bacteremia - awaiting surgery 12/31 - awaiting bone scan results - ID recs appreciated: on vanco and ceftazidime - pain control - await blood cultures - if needs surgery please obtain cultures HTN, controlled -Continue Lopressor -Follow blood pressures, mildly elevated BP 12/30 monitor CKD 3 -Appears that creatinine was elevated back to 2019 -Follow basic metabolic profile closely in light of need for Vanco -Creatinine appears better than it was in 2017 -If elevation occurs consult nephrology S/P AVR -Does not require anticoagulation at home Thank you for allowing us to participate in the care of this patient. Do not hesitate to contact us with questions. Someone can be reached from the [facility] hospitalist group at all hours of the day on perfect serve or at [phone].
[2018-12-31] MEDS ORDERED: IV FLUID CONTINUATION 200 ML IV ONE (12:36)
[2018-12-31] MEDS ORDERED: PROPOFOL 10 MG/ML 20 ML VIAL IV ONE (12:36)
[2018-12-31] MEDS ORDERED: MIDAZOLAM 2 MG/2 ML VIAL ONE (12:36)
[2018-12-31] MEDS ORDERED: LIDOCAINE 1% INJ 10MG/ML (20 ML MDV) ONE (12:36)
[2018-12-31] MEDS ORDERED: fentaNYL (PF) 50 MCG/ML 2 ML AMP ONE (12:36)
[2018-12-31] MEDS ORDERED: ceFAZolin 1,000 MG in SODIUM CHLORIDE 0.9% 1,000 ML IRRIGATION ONE (12:56)
[2018-12-31] MEDS ORDERED: LIDOCAINE 2% (PF) 20 MG/ML 10 ML AMP SQ ONE (12:57)
[2018-12-31] MEDS ORDERED: BUPIVACAINE (PF) 0.5% 30 ML VIAL SQ ONE (12:57)
[2018-12-31] MEDS ORDERED: SODIUM CHLORIDE 0.9% 1,000 ML IV ONE (13:22)
--- NOTE | 2018-12-31 14:21 | NM ---
EXAMINATION TYPE: NM bone 3 phase DATE OF EXAM: 12/31/2018 COMPARISON: NONE HISTORY: Osteomyelitis right hand Triple phase bone scintigraphy was performed following the injection of 3.25 mCi Tc 99m MDP. Immedia te images and 23.0 hours post injection images acquired. FINDINGS: Blood flow: There is increased radiotracer accumulation on blood flow images on the right hand compar ed to the left hand. Blood pool: There is increased radiotracer accumulation along the right index finger compared to the left. Static images: There is increased radiotracer accumulation within the distal and middle phalanx index finger right hand. Radiotracer is also present at the index and middle finger metacarpal phalangeal joint space of the right hand. There is radiotracer accumulation within the left first and fifth meta carpal phalangeal joint regions. 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 IMPRESSION: 1. Increased radiotracer accumulation on all 3 phases of bone scan within the index finger predominan tly at the distal phalanx right hand. Findings can be compatible with osteomyelitis in the proper cli nical setting. 2. Additional degenerative type uptake is noted within the hands on the static images
[2018-12-31] MEDS ORDERED: VANCOMYCIN TROUGH DUE 1 EACH MISC MISCELLANE ONE (15:00)
[2018-12-31 15:41] LABS: Glucose,Whole Blood 114 mg/dL (75-99)
[2018-12-31] MEDS: VANCOMYCIN 1,250 MG in SODIUM CHLORIDE 0.9% 250 ML IVPB SCH (16:14)
[2018-12-31] MEDS: HYDROmorphone 1 MG/ML 1 ML SYRINGE IVP PRN (19:15)
[2019-01-01] MEDS: HYDROmorphone 1 MG/ML 1 ML SYRINGE IVP PRN (02:19)
[2019-01-01] MEDS: VIT A,C & E-LUTEIN-MINERALS 1 EACH TAB PO SCH ×2 (07:40→21:21)
[2019-01-01] MEDS: METOPROLOL TARTRATE 12.5 MG TAB PO SCH (07:40)
[2019-01-01] MEDS: MULTIVITAMINS, THERA 1 EACH TAB PO SCH (07:40)
[2019-01-01] MEDS: HYDROcodone/APAP 5-325MG 1 EACH TAB PO PRN ×2 (08:17→21:22)
--- NOTE | 2019-01-01 09:03 | P.PN ---
Subjective Progress Note Date: 01/01/19 Principal diagnosis: Right index finger cellulitis The patient is an 83 y/o male who we admitted on Saturday for a post-operative infection/cellulitis to the right index finger. He was started on Vancomycin and moist heat compression but his course did not improve. Bone scan revealed osteomyelitis to the right index finger and he underwent an incision and debridement of the right index trigger yesterday. Today, he states he is feeling better and his pain is improving. He states he had chills and he was coughing that has now resolved. Blood cultures reveal staph aureus and gram-negative bacilli and wound cultures from yesterday are currently pending with no organisms on Gram stain. The patient will most likely need a PICC line for IV antibiotics and a repeat blood culture will be ordered today. Objective - Vital Signs Vital signs: Vital Signs Temp 98.2 F 01/01/19 05:00 Pulse 87 01/01/19 05:00 Resp 18 01/01/19 05:00 BP 169/81 01/01/19 05:00 Pulse Ox 96 01/01/19 05:00 Intake & Output 12/31/18 01/01/19 01/01/19 18:59 06:59 18:59 Intake Total 201 650 Output Total 1 Balance 200 650 Intake: IV 201 Oral 650 Output: Estimated Blood Loss 1 Other: Voiding Method Urinal # Voids 2 3 - Exam The patient is an 83-year-old male who is in no acute distress. He is alert and oriented 3. Exam of the right index finger reveals slightly improved erythema and swelling. No proximal swelling or red streaking noted. Dressing and packing removed. The wound bed appears to be healthy. No purulence noted. There is continued with limited range of motion of the fingers due to pain and swelling. Decreased sensation to the fingertip is present. No tenderness along the flexor tendon sheath. Tenderness to the fingertip is present as expected. There is warm and well-perfused. Capillary refill less than 2 seconds. - Labs CBC & Chem 7: 12/31/18 09:04 01/01/19 08:23 Labs: Abnormal Lab Results - Last 24 Hours (Table) 12/31/18 12/31/18 12/31/18 Range/Units 09:04 09:04 15:39 RBC 4.28 L (4.30-5.90) m/uL Sodium 136 L (137-145) mmol/L Carbon Dioxide 20 L (22-30) mmol/L Glucose 107 H (74-99) mg/dL POC Glucose (mg/dL) 114 H (75-99) mg/dL Microbiology - Last 24 Hours (Table) 12/31/18 13:05 Gram Stain - Preliminary Finger - Right First Wound Culture - Preliminary 12/30/18 18:51 Blood Culture - Preliminary Blood No Growth after 24 hours 12/31/18 13:05 Anaerobic Culture - Preliminary Finger - Right First Assessment and Plan (1) Pain in right hand Current Visit: Yes Status: Acute Code(s): M79.641 - PAIN IN RIGHT HAND SNOMED Code(s): 50811679 (2) Cellulitis of finger of right hand Current Visit: Yes Status: Acute Code(s): L03.011 - CELLULITIS OF RIGHT FINGER SNOMED Code(s): 86526283 Plan: The clinical and operative findings were discussed with the patient. The case was discussed with Dr. Marshall Gould. Continue IV antibiotics per infectious disease. Patient will start warm soaks to the right index finger at least 3 times daily with warm water and soap. The wound will be allowed to dry and wrapped with a nonadherent dressing. He is instructed to continue range of motion of the finger as tolerated. Repeat blood cultures will be ordered today and if they remain negative, a PICC line will be placed likely on Saturday. Case management to assist in his arrangement of home antibiotics once the cultures have been finalized and antibiotics had been determined. We will continue to follow patient closely and make further recommendations as needed.
[2019-01-01] MEDS: VANCOMYCIN 1,250 MG in SODIUM CHLORIDE 0.9% 250 ML IVPB SCH (09:46)
--- NOTE | 2019-01-01 16:10 | P.PN ---
Subjective Progress Note Date: 01/01/19 (delayed charting patient seen at 1330) Principal diagnosis: Right index finger swelling Patient is an 83-year-old male with a past medical history of valvular heart disease status post repair [facility] not requiring chronic anticoagulation, hypertension, and prior prostate cancer who underwent right index finger DIP ganglion cyst excision with joint debridement on 12/26/[address] Marshall Gould at the [facility]. Apparently he left his dressing in place and when he took down his dressing he noticed right index finger swelling, pain, and inability to flex his right index finger. He also report reported some chills and riders. He subsequently went to the emergency department. On arrival to the ER he was slightly hypertensive with a blood pressure of 160/82 laboratory analysis showed a white blood cell count of 10.5, hemoglobin 12.4, and creatinine of 1.27. There was concern for infection in the right index finger. He was subsequently started on IV antibiotics and admitted to the orthopedic service. Infectious disease was consulted and initial culture results are joint gram-negative bacilli and antibiotics were broadened to add cefepime to vancomycin. Blood cultures resulted on 12/29 with staph aureus. Patient bone scan 12/31 showed right index finer osteomyelitis. He underwent I and D with wash out in the OR on 12/31. His blood culture also started growing Gram negative bacilli. Patient seen and examined at bedside. Pain in his finger is better. Having 3 bowel movements today. No nausea, vomiting, chest pain, or shortness of breath. Realizes that he will need 6 weeks of IV ABX. Objective - Vital Signs Vital signs: Vital Signs Temp 98.3 F 01/01/19 12:13 Pulse 77 01/01/19 12:13 Resp 15 01/01/19 12:13 BP 132/69 01/01/19 12:13 Pulse Ox 96 01/01/19 12:13 Intake & Output 12/31/18 01/01/19 01/01/19 18:59 06:59 18:59 Intake Total 201 650 Output Total 1 Balance 200 650 Intake: IV 201 Oral 650 Output: Estimated Blood Loss 1 Other: Voiding Method Urinal Toilet # Voids 2 3 2 - Exam General: non toxic, no distress, appears younger than stated age Derm: Dressing in place over right index finger, warm, dry Head: atraumatic, normocephalic, symmetric Eyes: EOMI, no lid lag, anicteric sclera Mouth: no lip lesion, mucus membranes moist Cardiovascular: S1S2 reg, no murmur, positive posterior tibial pulse bilateral, Lungs: decreased bs bilateral, no rhonchi, no rales , no accessory muscle use Abdominal: soft, nontender to palpation, no guarding, no appreciable organomegaly Ext: no gross muscle atrophy, no edema, no contractures Neuro: CN II-XI grossly intact, no focal neuro deficits Psych: Alert, oriented, appropriate affect - Labs CBC & Chem 7: 12/31/18 09:04 01/01/19 08:23 Labs: Abnormal Lab Results - Last 24 Hours (Table) 12/31/18 Range/Units 15:39 POC Glucose (mg/dL) 114 H (75-99) mg/dL Microbiology - Last 24 Hours (Table) 12/31/18 13:05 Gram Stain - Preliminary Finger - Right First Wound Culture - Preliminary Presumptive Staph aureus 12/30/18 18:51 Blood Culture - Preliminary Blood No Growth after 24 hours 12/31/18 13:05 Anaerobic Culture - Preliminary Finger - Right First Assessment and Plan Assessment: Cellulitis of the right index finger with osteomyelitis and staph/ Grma negative bacteremia - s/p I and D - repeat blood cultures 01/01. likely will need 6 weeks of IV ABX. Patient would prefer through home health but alos will to go to [facility] if home infusion to available. - ID recs appreciated: on vanco and ceftazidime - pain control -Wound cultures with presumption staph HTN, controlled -Continue Lopressor -Follow blood pressures CKD 3 -Appears that creatinine was elevated back to 2019 -Follow basic metabolic profile closely in light of need for Vanco -Creatinine appears better than it was in 2017 -If elevation occurs consult nephrology S/P AVR -Does not require anticoagulation at home Thank you for allowing us to participate in the care of this patient. Do not hesitate to contact us with questions. Someone can be reached from the [facility] hospitalist group at all hours of the day on perfect serve or at [phone].
[2019-01-01] MEDS: LACTOBACILLUS ACIDOPH & BULGAR 1 EACH PACKET PO SCH ×2 (17:35→22:43)
--- NOTE | 2019-01-01 22:06 | PN ---
PROGRESS NOTE EMERGENCY ROOM NOTE: DATE OF SERVICE: 12/29/2018. TIME OF SERVICE: 11:00 a.m. This 83-year-old man is seen in the emergency room for potentially infected right index finger. He is a patient of mine who underwent a routine ganglion cyst excision with joint debridement of his distal interphalangeal joint of his right index finger as an outpatient 3 days ago. He states he changed the dressing yesterday and noted considerable redness and pain, and it is unclear why he did not seek medical attention at that time. Today he presented to the emergency room. Examination demonstrates swelling and redness at the distal interphalangeal joint at the location of the incision. There is proximal red streaking to approximately the metacarpophalangeal joint and somewhat into the hand along the dorsal radial aspect. His examination does not suggest a flexor tendon sheath infection. He does not appear to be ill at this time. The pain is moderate. No additional x-rays were taken at this time. IMPRESSION: Infected distal interphalangeal joint, right index finger. PLAN: Consideration was given for a 24-hour period of outpatient oral antibiotics with continuous moist heat. However, due to the potential of a joint infection, I believe it is best that he be treated with IV antibiotic and admitted at this time. Admission instructions include continuous moist heat. An IV has been started in the emergency room and IV antibiotics have been administered. Dr. Josemanuel Moreno from the Department of Infectious Disease is consulted for further recommendations for appropriate antibiotics. Further care will be given pending the development of the case. At this time, I do not feel that an urgent operative intervention for incision and drainage is indicated. A trial 24 hours of IV antibiotics and moist heat may bring this under control. MMODL / IJN: [id number] / [email or web address]
--- NOTE | 2019-01-01 22:44 | PN ---
PROGRESS NOTE DATE OF SERVICE: 12/30/2018. TIME OF SERVICE: 6:00 p.m. This 83-year-old man is seen at the bedside after being admitted for 24 hours of IV antibiotics and physical care of a potential distal interphalangeal joint infection of his right index finger. He has not received his continuous moist heat. His IV antibiotics are being directed by Dr. Josemanuel Moreno from the department of infectious disease. His pain remains moderate and his condition is not improving. He is feeling ill with a poor appetite, and blood cultures have suggested sepsis. Examination is done along with Dr. Josemanuel Moreno, who is present at this time. Examination of the DIP joint indicates increased swelling, redness and pustular drainage. There is minimal improvement of the erythema and swelling of his finger. Again I do not believe there is a flexor tendon sheath infection. However, the infection at the distal interphalangeal joint is worsening and surgical intervention is indicated. IMPRESSION: Infected distal interphalangeal joint, right index finger. PLAN: As stated above, examination was done along with Dr. Josemanuel Moreno at this time. We discussed an urgent incision and drainage this evening. Together we decided, considering he is not n.p.o. and the IV antibiotics have not had much time to take effect, that the surgical procedure could wait overnight and be done at the first time available in the morning. We will continue IV antibiotics and I demonstrated to the nurse how to apply the continuous moist heat. Sterile gauze wettened with sterile saline is applied to the wound, wrapped with a K-pad applied at a warm temperature. This is surrounded by a dry towel to contain the heat. The operating room personnel will be contacted to see if we can arrange a surgical incision and drainage first thing in the morning at 7 to 7:30 a.m. MMODL / AMANDAN: [id number] /
--- NOTE | 2019-01-01 22:57 | PN ---
PROGRESS NOTE DATE OF SERVICE: 12/31/2018. TIME OF SERVICE: 7:40 a.m. This 83-year-old man has now been admitted for 48 hours for infected index finger. His IV antibiotics have been prescribed by Dr. Josemanuel Moreno. Continuous moist heat and wound cleansing has been ordered, and it is unclear how much has been provided. Examination at this time demonstrates his continuous moist heat is off. Exam of his index finger demonstrates some mild improvement with less redness, less swelling and less drainage. As such, it appears to have responded to the IV antibiotics and the physical care that has been applied, although unknown how consistently. Although there is improvement, I believe incision and drainage is still the best treatment to maximize the care of this infection. IMPRESSION: Infected distal interphalangeal joint infection, right index finger. PLAN: The operating room did not have adequate personnel to do this procedure first thing this morning, and it is scheduled for 12:00 noon. In the meantime, he is undergoing a bone scan to assess the possibility of bone and joint infection, which I assume exists. I have spoken to Dr. Josemanuel Moreno in the office, and it is most likely he will undergo 6 weeks of IV antibiotics for a bone and joint infection. He is n.p.o. at this time in preparation for the surgical procedure later this morning. MMODL / IJN: [id number] /
--- NOTE | 2019-01-01 22:59 | OP ---
OPERATIVE REPORT DATE OF SERVICE: 12/31/2018. TIME: 1:30 p.m. PREOPERATIVE DIAGNOSIS: Infected distal interphalangeal joint, right index finger. FINAL DIAGNOSIS: Infected distal interphalangeal joint, right index finger. PROCEDURES: 1. Incision and drainage, distal interphalangeal joint, right index finger. 2. Joint debridement, deep culture, and pulse lavage. 3. Open packing with bulky dressing. SURGICAL INDICATIONS: This 83-year-old man underwent a routine ganglion cyst excision of the distal interphalangeal joint of his right index finger approximately 5 days ago. Within a couple of days he developed an infection. There was a one-day delay to begin this treatments until they finally presented to the emergency room Saturday morning, 12/29/2018. Since then he has been placed on IV antibiotics, physical care has been undertaken for the infected joint, and he has shown improvement. However, there is still evidence of pustular drainage and redness, and I believe that incision and drainage and joint debridement remains indicated and would be the best optimal treatment. GROSS PATHOLOGY: A small amount of pus was noted within the joint, and clinically and visually the infection is continuous with the joint and therefore involves joint and bone. A good deep culture was taken and an excellent pulse lavage and joint debridement was accomplished. PROCEDURE: This 83-year-old man was taken to the operative suite and given IV sedation. I then did a digital block of his right index finger with a combination of xylocaine and Marcaine, both without epinephrine. The hand was prepped and draped in the usual manner. No tourniquet was necessary. Under 4.5 loupe magnification, the wound was opened. A thorough joint debridement was performed with a small rongeur. A deep culture was then taken. Antibiotic fluid in the amount of 1000 mL was used to pulse lavage the wound. This provided excellent visual evidence of cleansing. When this was completed, the wound appeared to be healthy, with no visible signs of pus or granulation tissue. The wound was packed open with quarter-inch iodoform gauze and a large bulky dressing was applied. He was then taken to the recovery room in satisfactory condition. MMODL / IJN: [id number] /
--- NOTE | 2019-01-01 23:09 | PN ---
PROGRESS NOTE DATE OF SERVICE: 01/01/2019. TIME: 2:30 p.m. This 83-year-old man has been admitted for 3 days with an infected right index finger. Yesterday he underwent extensive incision, drainage and deep lavage. His dressing was changed earlier this morning by my nurse practitioner, where a sterile cleansing and soaking with mild soap and water was performed followed by application of a bulky dressing. The packing was removed, and it was not necessary to repack, as the wound remained adequately open for further drainage. Symptomatically he is much improved. He describes minimal pain. He does not feel ill and his appetite has returned. He is comfortable at this time. Using sterile technique, his dressing was removed and his wound was examined. The wound remains adequately open for drainage. There is considerably less redness, less tenderness and less swelling. There is no significant pus at this time. He is clearly improving and he has responded significantly to the surgical procedure, the physical care, and the IV antibiotics ordered and monitored by Dr. Josemanuel Moreno from the department of infectious disease. A sterile soft bulky dressing was reapplied. PLAN: Dressing will be changed tomorrow with additional irrigation and cleansing. Based upon his progress, I doubt further surgical treatment will be necessary. The wound will be allowed to heal by secondary intention. IV antibiotics are likely to be needed for 6 weeks, but this determination is by Dr. Josemanuel Moreno. Clinically he is no longer septic and his blood work has improved. He will likely be maintained on IV antibiotics for several days until stabilization is confirmed. The necessity of a PICC line for IV antibiotics will be determined by Dr. Josemanuel Moreno. Further care will be given, pending development of the case. MMODL / IJN: [id number] / MISHEL
[2019-01-02] MEDS ORDERED: VANCOMYCIN 1,250 MG in SODIUM CHLORIDE 0.9% 250 ML IVPB SCH (02:00)
[2019-01-02] MEDS: METOPROLOL TARTRATE 12.5 MG TAB PO SCH (07:43)
[2019-01-02] MEDS: LACTOBACILLUS ACIDOPH & BULGAR 1 EACH PACKET PO SCH ×3 (07:43→16:32)
[2019-01-02] MEDS: MULTIVITAMINS, THERA 1 EACH TAB PO SCH (07:43)
[2019-01-02] MEDS: VIT A,C & E-LUTEIN-MINERALS 1 EACH TAB PO SCH (07:43)
[2019-01-02 07:46] VITALS: RESP 16
[2019-01-02 07:57] LABS: HCT 35.2 % (39.0-53.0); MCH 30.9 pg (25.0-35.0); Mean Platelet Volume 7.5; Platelet Count 273 k/uL (150-450); RBC 3.87 m/uL (4.30-5.90); RDW 12.5 % (11.5-15.5); WBC 10.1 k/uL (3.8-10.6)
[2019-01-02 08:21] LABS: Calcium 9.3 mg/dL (8.4-10.2)
--- NOTE | 2019-01-02 08:30 | P.PN ---
Subjective Progress Note Date: 01/02/19 Principal diagnosis: Right index finger cellulitis The patient is an 83 y/o male who we admitted on Saturday for a post-operative infection/cellulitis to the right index finger. He was started on Vancomycin and moist heat compression but his course did not improve significantly. 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 Today, he states he continues to feel better and his pain is improving. Blood and wound cultures reveal staph aureus. He is still on Vancomycin and Fortaz was discontinued yesterday. The patient will most likely need a PICC line for IV antibiotics and a repeat blood culture was obtained yesterday. Objective - Vital Signs Vital signs: Vital Signs Temp 98.3 F 01/02/19 07:45 Pulse 92 01/02/19 07:45 Resp 16 01/02/19 07:45 BP 129/72 01/02/19 07:45 Pulse Ox 94 L 01/02/19 07:45 Intake & Output 01/01/19 01/02/19 01/02/19 18:59 06:59 18:59 Intake Total 200 240 Balance 200 240 Intake: Oral 200 240 Other: Voiding Method Toilet Toilet # Voids 2 - Exam The patient is an 83-year-old male who is in no acute distress. He is alert and oriented 3. Exam of the right index finger reveals slightly improved erythema and swelling. No proximal swelling or red streaking noted. Dressing removed. The wound bed appears to be healthy. No purulence noted. There is continued with limited range of motion of the fingers due to pain and swelling. Decreased sensation to the fingertip is present. No tenderness along the flexor tendon sheath. Tenderness to the fingertip is present as expected. There is warm and well-perfused. Capillary refill less than 2 seconds. - Labs CBC & Chem 7: 01/02/19 07:20 01/02/19 07:20 Labs: Abnormal Lab Results - Last 24 Hours (Table) 01/02/19 01/02/19 Range/Units 07:20 07:20 RBC 3.87 L (4.30-5.90) m/uL Hgb 12.0 L (13.0-17.5) gm/dL Hct 35.2 L (39.0-53.0) % Glucose 100 H (74-99) mg/dL Microbiology - Last 24 Hours (Table) 12/30/18 18:51 Blood Culture - Preliminary Blood No Growth after 48 hours 12/31/18 13:05 Gram Stain - Preliminary Finger - Right First Wound Culture - Preliminary Presumptive Staph aureus Assessment and Plan (1) Pain in right hand Current Visit: Yes Status: Acute Code(s): M79.641 - PAIN IN RIGHT HAND SNOMED Code(s): 95251185 (2) Cellulitis of finger of right hand Current Visit: Yes Status: Acute Code(s): L03.011 - CELLULITIS OF RIGHT FINGER SNOMED Code(s): 47467166 Plan: The clinical and operative findings were discussed with the patient. The case was discussed with Dr. Marshall Gould. Continue IV antibiotics per infectious disease. Patient will continue warm soaks to the right index finger at least 3 times daily with warm water and soap. The wound will be allowed to dry and wrapped with a nonadherent dressing. He is instructed to continue range of motion of the finger as tolerated. Await new blood cultures and if they remain negative, a PICC line will be placed likely on Saturday. Case management to assist in his arrangement of home antibiotics once the cultures have been f inalized and antibiotics had been determined. We will continue to follow patient closely and make further recommendations as needed.
[2019-01-02] MEDS: HYDROcodone/APAP 5-325MG 1 EACH TAB PO PRN (09:56)
[2019-01-02] MEDS ORDERED: LIDOCAINE 1% INJ 10MG/ML (20 ML MDV) ONE (14:01)
[2019-01-02] MEDS ORDERED: LIDOCAINE 1% INJ 10MG/ML (20 ML MDV) SQ ONE (14:29)
[2019-01-02 14:40] VITALS: BP 144/69; PULSE 69; TEMP 98.6
--- NOTE | 2019-01-02 15:34 | IR ---
EXAMINATION TYPE: IR cvc insert >=5 years DATE OF EXAM: 01/02/2019 COMPARISON: NONE CLINICAL HISTORY: Infection Needs long-term intravenous access for antibiotics. PROCEDURE: After informed consent, the skin overlying the left basilic vein was localized with ultrasound and no mariposa to be compressible and patent. An ultrasound image was obtained and submitted on the patient's c calles. The overlying skin was prepped and draped and Lidocaine was used for local anesthesia. A skin kasia was made with a scalpel. Access was gained to the vein under ultrasound guidance with a 21 gau ge needle and a 0.018 inch wire was advanced. Access site was dilated with Peel-Away sheath and cath eter tailored to the appropriate length and advanced such that the distal tip is at the cavoatrial ju nction. Spot image was obtained verifying placement. Catheter was fixed to the skin and a sterile d ressing was placed following hemostasis. Catheter was aspirated and flushed with saline. Patient wa s discharged in stable condition without complication.Maximal barrier technique is utilized. Ultraso und image is documented on the chart. Ultrasound used with sterile technique. Fluoro time and fluoroscopic images submitted to document procedure: 0.1 minutes fluoroscopy time, 13 intraoperative images document the procedure IMPRESSION: STATUS POST ULTRASOUND AND FLUOROSCOPIC GUIDED PICC LINE PLACEMENT, READY FOR USE. THIS PROCEDURE WAS PERFORMED BY THE UNDERSIGNED.
--- NOTE | 2019-01-02 20:40 | P.PN ---
Subjective Progress Note Date: 01/02/19 (delayed charting seen at 0845) Principal diagnosis: Right index finger swelling Patient is an 83-year-old male with a past medical history of valvular heart disease status post repair [facility] not requiring chronic anticoagulation, hypertension, and prior prostate cancer who underwent right index finger DIP ganglion cyst excision with joint debridement on 12/26/[address] Marshall Gould at the [facility]. Apparently he left his dressing in place and when he took down his dressing he noticed right index finger swelling, pain, and inability to flex his right index finger. He also report reported some chills and riders. He subsequently went to the emergency department. On arrival to the ER he was slightly hypertensive with a blood pressure of 160/82 laboratory analysis showed a white blood cell count of 10.5, hemoglobin 12.4, and creatinine of 1.27. There was concern for infection in the right index finger. He was subsequently started on IV antibiotics and admitted to the orthopedic service. Infectious disease was consulted and initial culture results are joint gram-negative bacilli and antibiotics were broadened to add cefepime to vancomycin. Blood cultures resulted on 12/29 with staph aureus. Patient bone scan 12/31 showed right index finer osteomyelitis. He underwent I and D with wash out in the OR on 12/31. His blood culture also started growing Gram negative bacilli but were corrected to Staph aureus. Will have 6 weeks of rocephin had PICC line placed. number of bowel movements decreased with lactobaccilus. Patient seen and examined at bedside. Pain tolerated, excited to go home, no nausea, no vomiting, less bowel movements. Objective - Vital Signs Vital signs: Vital Signs Temp 98.6 F 01/02/19 12:52 Pulse 69 01/02/19 12:52 Resp 16 01/02/19 12:52 BP 144/69 01/02/19 12:52 Pulse Ox 96 01/02/19 12:52 Intake & Output 01/02/19 01/02/19 01/03/19 06:59 18:59 06:59 Intake Total 200 1000 Balance 200 1000 Intake: Oral 200 1000 Other: Voiding Method Toilet # Voids 2 - Exam General: non toxic, no distress, appears younger than stated age Derm: currently soaking right index finger, warm, dry Head: atraumatic, normocephalic, symmetric Eyes: EOMI, no lid lag, anicteric sclera Mouth: no lip lesion, mucus membranes moist Cardiovascular: S1S2 reg, no murmur, positive posterior tibial pulse bilateral, Lungs: decreased bs bilateral, no rhonchi, no rales , no accessory muscle use Abdominal: soft, nontender to palpation, no guarding, no appreciable organomegaly Ext: no gross muscle atrophy, no edema, no contractures Neuro: CN II-XI grossly intact, no focal neuro deficits Psych: Alert, oriented, appropriate affect - Labs CBC & Chem 7: 01/02/19 07:20 01/02/19 07:20 Labs: Abnormal Lab Results - Last 24 Hours (Table) 01/02/19 01/02/19 Range/Units 07:20 07:20 RBC 3.87 L (4.30-5.90) m/uL Hgb 12.0 L (13.0-17.5) gm/dL Hct 35.2 L (39.0-53.0) % Glucose 100 H (74-99) mg/dL Microbiology - Last 24 Hours (Table) 01/01/19 15:16 Blood Culture - Preliminary Blood No Growth after 24 hours 01/01/19 15:31 Blood Culture - Preliminary Blood No Growth after 24 hours 12/31/18 13:05 Gram Stain - Final Finger - Right First Wound Culture - Final Staphylococcus aureus 12/30/18 18:51 Blood Culture - Preliminary Blood No Growth after 48 hours Assessment and Plan Assessment: Cellulitis of the right index finger with osteomyelitis and staph aureus bacteremia - s/p I and D -6 weeks IV rocephin through [facility] at home, will follow with velasco - PICC line orderd. - Wound care per ortho HTN, controlled -Continue Lopressor -Follow blood pressures CKD 3 -Appears that creatinine was elevated back to 2019 -Creatinine appears better than it was in 2017 S/P AVR -Does not require anticoagulation at home Medically optimized for discharge. Home meds addressed on med rec
--- NOTE | 2019-01-05 15:27 | P.DS ---
Providers Date of admission: 12/31/18 09:06 Expected date of discharge: 01/02/19 Attending physician: Asael Gould Consults: 12/29/18 10:48 Consult Physician Urgent Consulting Provider: Josemanuel Moreno Consult Reason/Comments: infected right index finger s/p DIP ganglion cyst and joint debridement Do you want consulting provider notified?: Yes 12/29/18 15:25 Consult Physician Routine Consulting Provider: Emilio Wright Consult Reason/Comments: medical management Do you want consulting provider notified?: Yes Primary care physician: Emilio Wright - Discharge Diagnosis(es) (1) Pain in right hand Status: Acute (2) Cellulitis of finger of right hand Status: Acute Hospital Course: The patient is an 83 y/o male who was admitted from the emergency department on 12/29/2018 for a post-operatively infection to the right index finger. He is status post right index finger DIP ganglion cyst excision and joint debridement on 12/26/[address] Asael Gould. He developed redness and swelling in the finger 2 days post op and went to the ER for further evaluation. He also had chills and rigors but denied fever. Blood cultures were positive for Staph aureus. The patient was started on vancomycin and moist heat for the first 24 hours but the finger did not improve significantly and he was taken to the OR on 12/31/2018 for a incision and debridement of the right index finger by Dr. Asael Gould. A bone scan was also performed that revealed osteomyelitis of the right index finger. IV antibiotics were continued and subsequent blood cultures were negative on 12/30/2018 and 01/01/2019. A PICC line was placed on 01/02/2019 and he was set up for home infusion/wound care. On the day of discharge, the patient states that he is feeling better and his pain is controlled. Exam of the right index finger reveals decreased swelling and erythema. There is an open wound to the DIP joint level of the right index finger without purulence or fluid collection. Limited ROM of the finger due to pain and swelling. Neurological and circulatory status is intact. The patient was discharged home on 01/02/2019 in stable condition. Pertinent Studies: Laboratory Tests 01/02/19 01/02/19 07:20 07:20 WBC 10.1 RBC 3.87 L Hgb 12.0 L Hct 35.2 L Sodium 137 BUN 17 Creatinine 0.96 Glucose 100 H Patient Condition at Discharge: Stable Plan - Discharge Summary Discharge Rx Participant: No New Discharge Prescriptions: New HYDROcodone/APAP 5-325MG [[place] 5] 1 - 2 each PO Q4-6H PRN #30 tab PRN Reason: Pain ceFAZolin [Kefzol] 2 gm IVP Q8HR #120 ml Continue Metoprolol Tartrate [Lopressor] 12.5 mg PO DAILY Multivitamin/Iron/Folic Acid [Centrum Adults Tablet] 1 tab PO DAILY Vit C/E/Zn/Coppr/Lutein/Zeaxan [Preservision Areds 2 Softgel] 1 cap PO BID Discharge Medication List Metoprolol Tartrate [Lopressor] 12.5 mg PO DAILY 01/04/15 [History] Multivitamin/Iron/Folic Acid [Centrum Adults Tablet] 1 tab PO DAILY 03/02/18 [History] Vit C/E/Zn/Coppr/Lutein/Zeaxan [Preservision Areds 2 Softgel] 1 cap PO BID 12/29/18 [History] HYDROcodone/APAP 5-325MG [[place] 5] 1 - 2 each PO Q4-6H PRN #30 tab 01/02/19 [Rx] ceFAZolin [Kefzol] 2 gm IVP Q8HR #120 ml 01/02/19 [Rx] Follow up Appointment(s)/Referral(s): Emilio Wright MD [Primary Care Provider] - 01/06/19 10:15 am Josemanuel Moreno MD [STAFF PHYSICIAN] - 2 Weeks [facility], [NON-STAFF] - [facility]Infusion [NON-STAFF] - (Supplies the IV antibiotics) Asael Gould DO [Doctor of Osteopathic Medicine] - 01/08/19 8:30 am (Please call office to set up time for appointment on 01/07/2019.) Ambulatory/Diagnostic Orders: Basic Metabolic Panel [LAB.AMB] Location: None Selected Complete Blood Count w/diff [LAB.AMB] Location: None Selected Miscellaneous Lab Order [LAB.AMB] Location: None Selected Patient Instructions/Handouts: Cellulitis (DC) Activity/Diet/Wound Care/Special Instructions: Continue warm water soaks with soap at home 2-3 times daily Cover with dry non-stick dressing until healed. Follow up with Dr. Marshall Gould next 01/07/2019. To help with loose stool take lactobacillus twice daily Discharge Disposition: HOME WITH HOME HEALTH SERVICES
--- NOTE | 2019-01-12 07:34 | CDI ---
Documentation Clarification Form Date: 01/12/19 From: Amanda Keen Phone: If you have a question about this query, please contact Ashley Gan, [employer] at [phone] between 8am and 5pm. Admit Date: 12/31/18 Discharge Date: 01/02/19 Patient Name: Moses Sue Visit Number: [id number] ATTENTION: The Clinical Documentation Specialists (CDI) and [facility] Coding Staff appreciate your assistance in clarifying documentation. Please respond to the clarification below the line at the bottom and electronically sign. The CDI & [facility] Coding staff will review the response and follow-up if needed. Please note: Queries are made part of the Legal Health Record. If you have any questions, please contact the author of this message via ITS. Dear Dr Asael Gould, Per your operative note, a joint debridement, deep culture and pulse lavage was performed on 01/01. History/Risk Factors: post-op infection with cellulitis of right index finger and osteomyelitis Clinical Indicators: right index finger swelling of the entire finger, Erythema is present and extends into the distal hand at the base of the right index finger. Bone scan- compatible with osteomyelitis. Treatment: Incision and drainage, distal interphalangeal joint, right index finger. Joint debridement, deep culture, and pulse lavage. Open packing with bulky dressing. In order to capture the severity of condition and code the appropriate procedure; could you please document the following: Excisional debridement (the removal of necrotic, devitalized tissue or slough by means of cutting away of tissue) and depth of the debridement - fascia, tendon, muscle or bone removed Non-excisional debridement (the removal of necrotic, devitalized tissue or slough by means of flushing, brushing, or washing. (Irrigation) Other; please specify Unable to determine I performed an excisional debridement of the right index finger DIP joint and surrounding tissues. MISHEL
--- NOTE | 2019-01-12 07:45 | CDI ---
Documentation Clarification Form Date: 01/12/19 From: Amanda Keen Phone: If you have a question about this query, please contact Ashley Gan, [employer] at [phone] between 8am and 5pm. Admit Date: 12/31/18 Discharge Date: 01/02/19 Patient Name: Moses Sue Visit Number: [id number] ATTENTION: The Clinical Documentation Specialists (CDI) and [facility] Coding Staff appreciate your assistance in clarifying documentation. Please respond to the clarification below the line at the bottom and electronically sign. The CDI & [facility] Coding staff will review the response and follow-up if needed. Please note: Queries are made part of the Legal Health Record. If you have any questions, please contact the author of this message via ITS. Dear Dr. Asael Gould, Conflicting documentation has been found in the medical record: Bacteremia was documented in Dr Patel's PNs on 12/31, 01/01 & 01/02. In your 01/01 progress note you document blood cultures have suggested sepsis. History/Risk Factors: post-op infection with cellulitis of right index finger and osteomyelitis Clinical Indicators: right index finger swelling of the entire finger, Erythema is present and extends into the distal hand at the base of the right index finger. Bone scan- compatible with osteomyelitis. Treatment: Incision and drainage, distal interphalangeal joint, right index finger. Joint debridement, deep culture, and pulse lavage. Open packing with bulky dressing. IV antibiotics (Vanco, Fortaz, Kefzol) In your opinion, what is the most clinically appropriate diagnosis for this patient? Sepsis ruled in Sepsis ruled out Other explanation of clinical findings Unable to determine (no explanation for clinical findings) Sepsis ruled out. Bacteremia only. MTDD
== END 2019-01-02 17:28 | disposition home health service (06) | DRG 857 ==
LOC: EC 07:21 → 3NMEDONC 09:07 → 4MS4W 14:20 → OBSVTOIN 12-31 09:06
PROVIDERS: ADMIT Orthopaedic Surgery Hand Surgery; ATTEND Orthopaedic Surgery Hand Surgery
PROC: 0RBW0ZZ Excision of Right Finger Phalangeal Joint, Open Approach (ICD-10-PCS; 2019-01-01)
PROC: 02HV33Z Insertion of Infusion Device into Superior Vena Cava, Percutaneous Approach (ICD-10-PCS; principal; 2019-01-02 13:15)
DX: T81.42XA Infection following a procedure, deep incisional surgical site, initial encounter (principal); M00.041 Staphylococcal arthritis, right hand; M86.9 Osteomyelitis, unspecified; R78.81 Bacteremia; B95.61 Methicillin susceptible Staphylococcus aureus infection as the cause of diseases classified elsewhere; N18.3 Chronic kidney disease, stage 3 (moderate); L03.011 Cellulitis of right finger; I12.9 Hypertensive chronic kidney disease with stage 1 through stage 4 chronic kidney disease, or unspecified chronic kidney disease; I83.90 Asymptomatic varicose veins of unspecified lower extremity; Z79.899 Other long term (current) drug therapy; Z85.46 Personal history of malignant neoplasm of prostate; Z95.2 Presence of prosthetic heart valve; Z95.5 Presence of coronary angioplasty implant and graft; Z87.891 Personal history of nicotine dependence; Z98.890 Other specified postprocedural states; Z89.022 Acquired absence of left finger(s); Z98.42 Cataract extraction status, left eye; Z98.41 Cataract extraction status, right eye; Z80.9 Family history of malignant neoplasm, unspecified; Y83.8 Other surgical procedures as the cause of abnormal reaction of the patient, or of later complication, without mention of misadventure at the time of the procedure
CPT/HCPCS: 36573; 78315; 80048; 80202; 82565; 83605; 85025; 85027; 87040; 87070; 87075; 87077; 87186; 87205; 96365; 96366; 96367; 99285

== ENCOUNTER → 2020-11-15 | Outpatient (CLI) | payer MEDICARE, BC ==
[2020-11-15 20:57] LABS: Basophils # (A) 0.02 X 10*3/uL (0.00-0.10); Basophils % (A) 0.4 %; Eosinophils # (A) 0.22 X 10*3/uL (0.04-0.35); HCT 40.5 % (39.6-50.0); HGB 13.3 g/dL (13.0-17.0); Lymphocytes # (A) 1.09 X 10*3/uL (0.90-5.00); Lymphocytes % (A) 19.9 %; MCH 30.8 pg (27.0-32.0); MCHC 32.8 g/dL (32.0-37.0); MCV 93.8 fL (80.0-97.0); Monocytes # (A) 0.53 X 10*3/uL (0.20-1.00); Monocytes % (A) 9.7 %; Neutrophils # (A) 3.59 X 10*3/uL (1.80-7.70); Neutrophils % (A) 65.6 %; Platelet Count 229 X 10*3/uL (140-440); RBC 4.32 X 10*6/uL (4.40-5.60); RDW 13.4 % (11.5-14.5); WBC 5.47 X 10*3/uL (4.50-10.00)
[2020-11-16 00:31] LABS: Erythrocyte Sedimentation Rate 10 mm/Hr (0-20)
== END | disposition home or self-care (01) ==
LOC: LABWHC1 14:22
PROVIDERS: ATTEND Ophthalmology
DX: M31.6 Other giant cell arteritis (principal); H54.7 Unspecified visual loss
CPT/HCPCS: 36415; 85025; 85652; 86140

== ENCOUNTER 2021-01-28 09:24 | Emergency (ER) | payer MEDICARE, BC ==
[2021-01-28 09:31] VITALS: TEMP 96.9
[2021-01-28] MEDS ORDERED: LIDOCAINE 1% INJ 10MG/ML (20 ML MDV) SQ ONE (09:51)
[2021-01-28] MEDS ORDERED: BACITRACIN OINT 1 EACH PACKET TOPICAL ONE (09:52)
--- NOTE | 2021-01-28 10:30 | ED ---
Wound/Laceration HPI - General Chief Complaint: Wound/Laceration Stated Complaint: head laceration Time Seen by Provider: 01/28/21 09:35 Source: patient, RN notes reviewed Mode of arrival: ambulatory Limitations: no limitations - History of Present Illness Initial Comments: Patient is an 85-year-old male presenting to the emergency Department with compl aints of a laceration to his right forehead. Patient states yesterday he tripped over his 's oxygen cord and fell into the wall. He states this happened about 7 PM last evening. He denies any loss consciousness, no stiffness. Headache, no neck pain. He denies any dizziness, no nausea or vomiting, is not on blood thinners. States he feels fine and he just thinks he needs some sutures. Patient is up-to-date with his tetanus. He has no further complaints. - Related Data Home Medications Medication Instructions Recorded Confirmed Metoprolol Tartrate [Lopressor] 12.5 mg PO DAILY 01/04/15 12/29/18 Multivitamin/Iron/Folic Acid 1 tab PO DAILY 03/02/18 12/29/18 [Centrum Adults Tablet] Vit C/E/Zn/Coppr/Lutein/Zeaxan 1 cap PO BID 12/29/18 12/29/18 [Preservision Areds 2 Softgel] Previous Rx's Medication Instructions Recorded HYDROcodone/APAP 5-325MG [[place] 5] 1 - 2 each PO Q4-6H PRN #30 tab 01/02/19 ceFAZolin [Kefzol] 2 gm IVP Q8HR #120 ml 01/02/19 Allergies Allergy/AdvReac Type Severity Reaction Status Date / Time No Known Allergies Allergy Verified 01/28/21 09:31 Review of Systems ROS Statement: Those systems with pertinent positive or pertinent negative responses have been documented in the HPI. ROS Other: All systems not noted in ROS Statement are negative. Past Medical History Past Medical History: Cancer, Hypertension Additional Past Medical History / Comment(s): varicose veins, arrthymia,, hx prostate cancer History of Any Multi-Drug Resistant Organisms: None Reported Past Surgical History: Cardiac Valve Replacement, Heart Catheterization With Stent, Hernia Repair, Orthopedic Surgery, Prostate Surgery, Tonsillectomy Additional Past Surgical History / Comment(s): 3 fingers amputated left hand due to industrial accident, cataracts, cardiac valve sugery 07/31/2013. ( one replaced and one repaired). Past Anesthesia/Blood Transfusion Reactions: No Reported Reaction Date of Last Stent Placement:: 07/2013 Past Psychological History: No Psychological Hx Reported Past Alcohol Use History: Occasional Past Drug Use History: None Reported - Past Family History Brother(s) Family Medical History: Cancer General Exam - General Exam Comments Initial Comments: GENERAL: Patient is well-developed and well-nourished. Patient is nontoxic and in no acute distress. HEAD: Atraumatic, normocephalic. EYES: Pupils equal round and reactive to light, extraocular movements intact, sclera anicteric, conjunctiva are normal. Eyelids were unremarkable. ENT: Oropharynx clear without exudates. Moist mucous membranes. NECK: Normal range of motion, supple without lymphadenopathy or JVD. LUNGS: Unlabored respirations. Breath sounds clear to auscultation bilaterally and equal. No wheezes rales or rhonchi. HEART: Regular rate and rhythm without murmurs, rubs or gallops. MUSCULOSKELETAL: Normal extremities with adequate strength and normal range of motion, no pitting or edema. No clubbing or cyanosis. NEUROLOGICAL: Patient is alert and oriented x 3. Motor and sensory are also intact. Cranial nerves II through XII grossly intact. Symmetrical smile. Normal speech, normal gait. PSYCH: Normal mood, normal affect. SKIN: Warm, Dry, normal turgor, no rashes. Patient has a 1.5 cm laceration to the right eyebrow area. No active bleeding. Limitations: no limitations Course Vital Signs 01/28/21 09:28 Temperature 96.9 F L Pulse Rate 52 L Respiratory 18 Rate Blood Pressure 173/84 O2 Sat by Pulse 98 Oximetry Procedures - Laceration Laceration #1 Consent Obtained: verbal consent Indication: laceration Site: face (Right eyebrow) Size (cm): 0 (1.5cm) Description: linear Depth: simple, single layer Anesthetic Used: lidocaine 1% Anesthesia Technique: local infiltration Amount (mls): 2 Pre-repair: irrigated extensively Type of Sutures: nylon Size of Sutures: 5-0 Number of Sutures: 3 Technique: simple, interrupted Patient Tolerated Procedure: well Medical Decision Making - Medical Decision Making Patient is an 85-year-old male here with a 1.5 cm laceration in his right eyebrow after he fell into a wall last night. He tripped over a cord. No loss of consciousness, no headache, no dizziness, no alarming symptoms and exam. He is not on blood thinners. He states he feels fine just needed some stitches. He is up-to-date with his tetanus. Patient's wound was cleaned, closed with 3, 5-0 sutures. He tolerated procedure well. He is stable for discharge. Disposition Clinical Impression: Laceration of right eyebrow Disposition: HOME SELF-CARE Condition: Stable Instructions (If sedation given, give patient instructions): Care For Your Stitches (ED) Additional Instructions: Please return to the Emergency Department if symptoms worsen or any other concerns. Stitches need to be removed in 7-10 days, you may return to the ER for removal. Keep area clean and dry. Is patient prescribed a controlled substance at d/c from ED?: No Referrals: Soila Carlton MD [Primary Care Provider] - 1-2 days Time of Disposition: 10:30
[2021-01-28 10:46] VITALS: BP 124/76; PULSE 77; RESP 20
== END 2021-01-28 10:45 | disposition home or self-care (01) ==
LOC: EC 09:24
DX: S01.111A Laceration without foreign body of right eyelid and periocular area, initial encounter (principal); W01.198A Fall on same level from slipping, tripping and stumbling with subsequent striking against other object, initial encounter; I10 Essential (primary) hypertension; Z72.89 Other problems related to lifestyle; Z79.899 Other long term (current) drug therapy
CPT/HCPCS: 99282; 12011; J2001

== ENCOUNTER 2021-08-19 06:11 | Emergency (ER) | payer MEDICARE, BC ==
[2021-08-19] MEDS ORDERED: ONDANSETRON 4 MG/2 ML VIAL IVP STA (06:37)
[2021-08-19] MEDS ORDERED: SODIUM CHLORIDE 0.9% 1,000 ML IV STA ×2 (06:37→09:00)
--- NOTE | 2021-08-19 07:00 | ED ---
Weakness HPI - General Chief complaint: Weakness Stated complaint: Weakness Time Seen by Provider: 08/19/21 06:22 Source: patient, EMS, RN notes reviewed Mode of arrival: EMS Limitations: no limitations - History of Present Illness Initial comments: This is an 85-year-old male who presents to the emergency department for weakness, nausea, and vomiting. Patient states that since last night he has thrown up 4-5 times. He did have Dutch food last night. Reports that since then, he has felt increasingly weak and is now unable to walk. He has never had any issues like this before. He does continue to feel nauseous. Denies any pain. He does have a known COVID exposure to his daughter. He feels warm but has not measured any fevers. Denies any chills, sore throat, cough, dyspnea, chest pain, palpitations, abdominal pain, diarrhea, back pain, or headaches. MD Complaint: generalized weakness Onset/Timin -: days(s) Associated Symptoms: nausea/vomiting - Related Data Home Medications Medication Instructions Recorded Confirmed Metoprolol Tartrate [Lopressor] 12.5 mg PO DAILY 01/04/15 12/29/18 Multivitamin/Iron/Folic Acid 1 tab PO DAILY 03/02/18 12/29/18 [Centrum Adults Tablet] Vit C/E/Zn/Coppr/Lutein/Zeaxan 1 cap PO BID 12/29/18 12/29/18 [Preservision Areds 2 Softgel] Previous Rx's Medication Instructions Recorded HYDROcodone/APAP 5-325MG [[place] 5] 1 - 2 each PO Q4-6H PRN #30 tab 01/02/19 ceFAZolin [Kefzol] 2 gm IVP Q8HR #120 ml 01/02/19 Ondansetron Odt [Zofran Odt] 4 mg PO Q8HR PRN #15 tab 08/19/21 Allergies Allergy/AdvReac Type Severity Reaction Status Date / Time No Known Allergies Allergy Verified 08/19/21 06:20 Review of Systems ROS Statement: Those systems with pertinent positive or pertinent negative responses have been documented in the HPI. ROS Other: All systems not noted in ROS Statement are negative. Past Medical History Past Medical History: Cancer, Hypertension Additional Past Medical History / Comment(s): varicose veins, arrthymia,, hx prostate cancer History of Any Multi-Drug Resistant Organisms: None Reported Past Surgical History: Cardiac Valve Replacement, Heart Catheterization With Stent, Hernia Repair, Orthopedic Surgery, Prostate Surgery, Tonsillectomy Additional Past Surgical History / Comment(s): 3 fingers amputated left hand due to industrial accident, cataracts, cardiac valve sugery 07/31/2013. ( one replaced and one repaired). Past Anesthesia/Blood Transfusion Reactions: No Reported Reaction Date of Last Stent Placement:: 07/2013 Past Psychological History: No Psychological Hx Reported Smoking Status: Light tobacco smoker Past Alcohol Use History: Occasional Past Drug Use History: None Reported - Past Family History Brother(s) Family Medical History: Cancer General Exam Limitations: no limitations General appearance: alert, in no apparent distress Head exam: Present: atraumatic, normocephalic, normal inspection ENT exam: Present: normal exam, mucous membranes moist Respiratory exam: Present: normal lung sounds bilaterally. Absent: respiratory distress, wheezes, rales, rhonchi, stridor Cardiovascular Exam: Present: regular rate, normal rhythm, normal heart sounds. Absent: systolic murmur, diastolic murmur, rubs, gallop, clicks GI/Abdominal exam: Present: soft, normal bowel sounds. Absent: distended, tenderness, guarding, rebound, rigid Neurological exam: Present: alert, oriented X3, CN II-XII intact Psychiatric exam: Present: normal affect, normal mood Skin exam: Present: warm, dry, intact, normal color. Absent: rash Course Vital Signs 08/19/21 08/19/21 08/19/21 06:15 08:08 10:36 Temperature 96.6 F L 98.2 F Pulse Rate 78 68 68 Respiratory 18 16 15 Rate Blood Pressure 139/72 151/63 142/78 O2 Sat by Pulse 99 97 97 Oximetry EKG Findings - EKG Comments: EKG Findings:: Sinus rhythm with occasional first-degree AV block with occasional ventricular premature complexes. Borderline left axis deviation. Ventricular rate 72 bpm, PA interval 259 ms, QRS duration 95 ms, QTC 440 ms. Medical Decision Making - Medical Decision Making This is an 85-year-old male who presents to the emergency department for generalized weakness. Patient given IV fluids and Zofran. After 1 L of fluid and Zofran, patient stated that he felt better, but was still mildly weak. His nausea had improved and he had no episodes of emesis. Patient tolerated PO ch allenge with Jell-O. He was given an additional 500 mL of normal saline. Lab work and urinalysis were nonactionable. Symptoms may have been due to the [place] food he ate last night or a viral gastroenteritis. Patient was able to ambulate and states that he feels much better. He requests discharge home. Prescription for Zofran to the pharmacy. Advised to remain well-hydrated. Return precautions reviewed in depth, the patient is instructed to return to the emergency department with any new, worsening, or concerning symptoms. Patient verbalized understanding. This case was discussed in detail with the attending ED physician. Presentation, findings, and treatment plan discussed in detail as well. - Lab Data Result diagrams: 08/19/21 08:38 08/19/21 07:00 Lab Results 08/19/21 08/19/21 08/19/21 Range/Units 07:00 07:00 07:00 WBC (3.8-10.6) k/uL RBC (4.30-5.90) m/uL Hgb (13.0-17.5) gm/dL Hct (39.0-53.0) % MCV (80.0-100.0) fL MCH (25.0-35.0) pg MCHC (31.0-37.0) g/dL RDW (11.5-15.5) % Plt Count (150-450) k/uL MPV Neutrophils % % Lymphocytes % % Monocytes % % Eosinophils % % Basophils % % Neutrophils # (1.3-7.7) k/uL Lymphocytes # (1.0-4.8) k/uL Monocytes # (0-1.0) k/uL Eosinophils # (0-0.7) k/uL Basophils # (0-0.2) k/uL Sodium 141 (137-145) mmol/L Potassium 4.0 (3.5-5.1) mmol/L Chloride 108 H (98-107) mmol/L Carbon Dioxide 24 (22-30) mmol/L Anion Gap 9 mmol/L BUN 26 H (9-20) mg/dL Creatinine 1.26 H (0.66-1.25) mg/dL Est GFR (CKD-EPI)AfAm 60 (>60 ml/min/1.73 sqM) Est GFR (CKD-EPI)NonAf 52 (>60 ml/min/1.73 sqM) Glucose 154 H (74-99) mg/dL Calcium 9.4 (8.4-10.2) mg/dL Phosphorus 3.9 (2.5-4.5) mg/dL Magnesium 1.9 (1.6-2.3) mg/dL Total Bilirubin 0.7 (0.2-1.3) mg/dL AST 26 (17-59) U/L ALT 21 (4-49) U/L Alkaline Phosphatase 64 (38-126) U/L Troponin I <0.012 (0.000-0.034) ng/mL Total Protein 6.2 L (6.3-8.2) g/dL Albumin 3.7 (3.5-5.0) g/dL Urine Color Urine Appearance (Clear) Urine pH (5.0-8.0) Ur Specific [place] (1.001-1.035) Urine Protein (Negative) Urine Glucose (UA) (Negative) Urine Ketones (Negative) Urine Blood (Negative) Urine Nitrite (Negative) Urine Bilirubin (Negative) Urine Urobilinogen (<2.0) mg/dL Ur Leukocyte Esterase (Negative) Coronavirus (PCR) (Not Detectd) Influenza Type A RNA Not Detected (Not Detectd) Influenza Type B (PCR) Not Detected (Not Detectd) 08/19/21 08/19/21 08/19/21 Range/Units 07:00 08:38 08:41 WBC 7.2 (3.8-10.6) k/uL RBC 4.26 L (4.30-5.90) m/uL Hgb 13.1 (13.0-17.5) gm/dL Hct 39.8 (39.0-53.0) % MCV 93.4 (80.0-100.0) fL MCH 30.8 (25.0-35.0) pg MCHC 33.0 (31.0-37.0) g/dL RDW 13.3 (11.5-15.5) % Plt Count 206 (150-450) k/uL MPV 10.0 Neutrophils % 86 % Lymphocytes % 6 % Monocytes % 5 % Eosinophils % 1 % Basophils % 0 % Neutrophils # 6.2 (1.3-7.7) k/uL Lymphocytes # 0.4 L (1.0-4.8) k/uL Monocytes # 0.3 (0-1.0) k/uL Eosinophils # 0.0 (0-0.7) k/uL Basophils # 0.0 (0-0.2) k/uL Sodium (137-145) mmol/L Potassium (3.5-5.1) mmol/L Chloride (98-107) mmol/L Carbon Dioxide (22-30) mmol/L Anion Gap mmol/L BUN (9-20) mg/dL Creatinine (0.66-1.25) mg/dL Est GFR (CKD-EPI)AfAm (>60 ml/min/1.73 sqM) Est GFR (CKD-EPI)NonAf (>60 ml/min/1.73 sqM) Glucose (74-99) mg/dL Calcium (8.4-10.2) mg/dL Phosphorus (2.5-4.5) mg/dL Magnesium (1.6-2.3) mg/dL Total Bilirubin (0.2-1.3) mg/dL AST (17-59) U/L ALT (4-49) U/L Alkaline Phosphatase (38-126) U/L Troponin I (0.000-0.034) ng/mL Total Protein (6.3-8.2) g/dL Albumin (3.5-5.0) g/dL Urine Color Yellow Urine Appearance Clear (Clear) Urine pH 6.5 (5.0-8.0) Ur Specific [place] 1.017 (1.001-1.035) Urine Protein Trace H (Negative) Urine Glucose (UA) Negative (Negative) Urine Ketones Negative (Negative) Urine Blood Negative (Negative) Urine Nitrite Negative (Negative) Urine Bilirubin Negative (Negative) Urine Urobilinogen <2.0 (<2.0) mg/dL Ur Leukocyte Esterase Negative (Negative) Coronavirus (PCR) Not Detected (Not Detectd) Influenza Type A RNA (Not Detectd) Influenza Type B (PCR) (Not Detectd) Disposition Clinical Impression: Gastroenteritis Disposition: HOME SELF-CARE Instructions (If sedation given, give patient instructions): Gastroenteritis (ED), Acute Nausea and Vomiting (ED) Additional Instructions: Return to the emergency department with any new, worsening, or concerning symptoms. Take the Zofran as needed up to 3 times daily for nausea and vom iting. Make sure you remain well-hydrated. Follow up with your primary care provider in 1-2 days. Prescriptions: Ondansetron Odt [Zofran Odt] 4 mg PO Q8HR PRN #15 tab PRN Reason: Nausea And Vomiting Is patient prescribed a controlled substance at d/c from ED?: No Referrals: Soila Carlton MD [Primary Care Provider] - 1-2 days
[2021-08-19 07:47] LABS: Albumin 3.7 g/dL (3.5-5.0); Calcium 9.4 mg/dL (8.4-10.2); Magnesium 1.9 mg/dL (1.6-2.3); Phosphorus 3.9 mg/dL (2.5-4.5); Total Bilirubin 0.7 mg/dL (0.2-1.3); Total Protein 6.2 g/dL (6.3-8.2)
[2021-08-19 08:09] VITALS: PULSE 68
[2021-08-19 08:45] LABS: Basophils % (A) 0 %; Eosinophils % (A) 1 %; HCT 39.8 % (39.0-53.0); HGB 13.1 gm/dL (13.0-17.5); Lymphocytes # (A) 0.4 k/uL (1.0-4.8); Lymphocytes % (A) 6 %; MCH 30.8 pg (25.0-35.0); MCV 93.4 fL (80.0-100.0); Monocytes # (A) 0.3 k/uL (0-1.0); Monocytes % (A) 5 %; Neutrophils # (A) 6.2 k/uL (1.3-7.7); Neutrophils % (A) 86 %; Platelet Count 206 k/uL (150-450); RBC 4.26 m/uL (4.30-5.90); RDW 13.3 % (11.5-15.5); WBC 7.2 k/uL (3.8-10.6)
[2021-08-19 08:59] LABS: Appearance,Urine Clear (Clear); Bilirubin,Urine Negative (Negative); Blood,Urine Negative (Negative); Color,Urine Yellow; Glucose,Urine (UA) Negative (Negative); Ketones,Urine Negative (Negative); Leukocyte Esterase,Urine Negative (Negative); Nitrite,Urine Negative (Negative); PH, Urine 6.5 (5.0-8.0); Protein,Urine Trace (Negative); Specific Gravity,Urine 1.017 (1.001-1.035); Urobilinogen,Urine <2.0 mg/dL (<2.0)
[2021-08-19] MEDS ORDERED: SODIUM CHLORIDE 0.9% 500 ML 500 ML IV STA (09:01)
[2021-08-19 10:37] VITALS: BP 142/78; RESP 15; TEMP 98.2
== END 2021-08-19 10:36 | disposition home or self-care (01) ==
LOC: EC 06:11
DX: K52.9 Noninfective gastroenteritis and colitis, unspecified (principal); F17.200 Nicotine dependence, unspecified, uncomplicated; I10 Essential (primary) hypertension; Z20.822 Contact with and (suspected) exposure to COVID-19; Z79.899 Other long term (current) drug therapy
CPT/HCPCS: 36415; 80053; 83735; 84100; 84484; 85025; 81003; 87502; 87635; 99285; 96374; 96361; J2405; 93005

== ENCOUNTER 2021-08-21 08:44 | Emergency (ER) | payer MEDICARE, BC ==
[2021-08-21 08:51] VITALS: RESP 18
[2021-08-21] MEDS ORDERED: KETOROLAC 15 MG/ML 1 ML VIAL IM STA (09:26)
--- NOTE | 2021-08-21 09:47 | XR ---
EXAMINATION TYPE: XR shoulder complete RT DATE OF EXAM: 08/21/2021 CLINICAL HISTORY: pain TECHNIQUE: Three views of the right shoulder are obtained. COMPARISON: None FINDINGS: There is no acute fracture/dislocation evident. The acromioclavicular and glenohumeral daria int spaces appear within normal limits. The visualized ribs are intact and unremarkable. IMPRESSION: 1. There is no acute fracture or dislocation. ICD 10 NO FRACTURE, INITIAL EVALUATION
--- NOTE | 2021-08-21 10:07 | ED ---
General Adult HPI - General Chief complaint: Extremity Injury, Upper Stated complaint: rt shoulder pain Time Seen by Provider: 08/21/21 09:00 Source: patient, EMS, RN notes reviewed, old records reviewed Mode of arrival: EMS - History of Present Illness Initial comments: This is an 85-year-old male who presents emergency Department complaining of right shoulder pain which she states started years ago. Patient states over the last 4 days is gotten worse. Patient states movement makes it worse or pushing on it makes it worse per patient denies any swelling. Patient denies any new injury. Patient has any other complaints at this time. Patient states this same pain he has had for the last year and is unchanged. Patient denies any chest pain or palpitations or shortness of breath per patient denies abdominal pain patient denies nausea vomiting diarrhea per patient denies any recent fever chills or cough. - Related Data Home Medications Medication Instructions Recorded Confirmed Metoprolol Tartrate [Lopressor] 12.5 mg PO DAILY 01/04/15 12/29/18 Multivitamin/Iron/Folic Acid 1 tab PO DAILY 03/02/18 12/29/18 [Centrum Adults Tablet] Vit C/E/Zn/Coppr/Lutein/Zeaxan 1 cap PO BID 12/29/18 12/29/18 [Preservision Areds 2 Softgel] Previous Rx's Medication Instructions Recorded HYDROcodone/APAP 5-325MG [[place] 5] 1 - 2 each PO Q4-6H PRN #30 tab 01/02/19 ceFAZolin [Kefzol] 2 gm IVP Q8HR #120 ml 01/02/19 Ondansetron Odt [Zofran Odt] 4 mg PO Q8HR PRN #15 tab 08/19/21 Allergies Allergy/AdvReac Type Severity Reaction Status Date / Time No Known Allergies Allergy Verified 08/19/21 06:20 Review of Systems ROS Statement: Those systems with pertinent positive or pertinent negative responses have been documented in the HPI. ROS Other: All systems not noted in ROS Statement are negative. Past Medical History Past Medical History: Cancer, Hypertension Additional Past Medical History / Comment(s): varicose veins, arrthymia,, hx prostate cancer History of Any Multi-Drug Resistant Organisms: None Reported Past Surgical History: Cardiac Valve Replacement, Heart Catheterization With Stent, Hernia Repair, Orthopedic Surgery, Prostate Surgery, Tonsillectomy Additional Past Surgical History / Comment(s): 3 fingers amputated left hand due to industrial accident, cataracts, cardiac valve sugery 07/31/2013. ( one replaced and one repaired). Past Anesthesia/Blood Transfusion Reactions: No Reported Reaction Date of Last Stent Placement:: 07/2013 Past Psychological History: No Psychological Hx Reported Smoking Status: Light tobacco smoker Past Alcohol Use History: Occasional Past Drug Use History: None Reported - Past Family History Brother(s) Family Medical History: Cancer General Exam - General Exam Comments Initial Comments: GENERAL: Patient is well-developed and well-nourished. Patient is nontoxic and well- hydrated and is in no acute distress. ENT: Neck is soft and supple. No significant lymphadenopathy is noted. Oropharynx is clear. Moist mucous membranes. Neck has full range of motion without eliciting any pain. EYES: The sclera were anicteric and conjunctiva were pink and moist. Extraocular movements were intact and pupils were equal round and reactive to light. Eyelids were unremarkable. PULMONARY: Unlabored respirations. Good breath sounds bilaterally. No audible rales rhonchi or wheezing was noted. CARDIOVASCULAR: There is a regular rate and rhythm without any murmurs gallops or rubs. ABDOMEN: Soft and nontender with normal bowel sounds. SKIN: Skin is clear with no lesions or rashes and otherwise unremarkable. NEUROLOGIC: Patient is alert and oriented x3. Cranial nerves II through XII are grossly intact. Motor and sensory are also intact. Normal speech, volume and content. Symmetrical smile. MUSCULOSKELETAL: Normal extremities with adequate strength and full range of motion. There was no swelling in the shoulder region no redness. Was unable to elicit any pain on palpation but movement with external rotation causes increased pain LYMPHATICS: No significant lymphadenopathy is noted PSYCHIATRIC: Normal psychiatric evaluation. Course Vital Signs 08/21/21 08:48 Temperature 97.5 F L Pulse Rate 68 Respiratory 18 Rate Blood Pressure 152/68 O2 Sat by Pulse 98 Oximetry Medical Decision Making - Medical Decision Making X-ray shows no acute abnormality. Patient received Toradol emergency department. Disposition Clinical Impression: Chronic shoulder pain Disposition: HOME SELF-CARE Condition: Good Instructions (If sedation given, give patient instructions): Shoulder Pain (ED) Is patient prescribed a controlled substance at d/c from ED?: No Referrals: Soila Carlton MD [Primary Care Provider] - 1-2 days Eugene Lopez DO [Doctor of Osteopathic Medicine] - 1-2 days Time of Disposition: 10:07
[2021-08-21 10:49] VITALS: BP 131/59; PULSE 50; TEMP 98.1
== END 2021-08-21 10:48 | disposition home or self-care (01) ==
LOC: EC 08:44
DX: M25.511 Pain in right shoulder (principal); G89.29 Other chronic pain; I10 Essential (primary) hypertension; F17.209 Nicotine dependence, unspecified, with unspecified nicotine-induced disorders
CPT/HCPCS: 73030; 99283; 96372; J1885

== ENCOUNTER 2021-08-25 08:43 | Emergency (ER) | payer MEDICARE, BC ==
[2021-08-25 08:58] VITALS: BP 119/65; PULSE 67; RESP 16; TEMP 98.1
[2021-08-25] MEDS ORDERED: SODIUM CHLORIDE 0.9% 1,000 ML IV STA (09:08)
--- NOTE | 2021-08-25 09:12 | ED ---
General Adult HPI - General Chief complaint: Extremity Problem,Nontraumatic Stated complaint: Hand and feet trouble Time Seen by Provider: 08/25/21 09:01 Source: patient, RN notes reviewed Mode of arrival: ambulatory Limitations: no limitations - History of Present Illness Initial comments: Patient is a pleasant 85-year-old male presenting to the emergency department with concerns with paresthesias. Onset of symptoms was over 10 days ago. Patient has also been having nausea and vomiting. Patient states nausea vomiting is controlled with medication. Patient has decreased oral intake recently. Patient has paresthesias of all his distal extremities including hands and feet. No history of similar symptoms prior to 10-14 days ago. No weakness. Patient denies cold like sensation. - Related Data Home Medications Medication Instructions Recorded Confirmed Multivitamin/Iron/Folic Acid 1 tab PO DAILY 03/02/18 08/25/21 [Centrum Adults Tablet] Vit C/E/Zn/Coppr/Lutein/Zeaxan 1 cap PO BID 12/29/18 08/25/21 [Preservision Areds 2 Softgel] Metoprolol Tartrate [Lopressor] 12.5 mg PO DAILY 08/25/21 08/25/21 Allergies Allergy/AdvReac Type Severity Reaction Status Date / Time No Known Allergies Allergy Verified 08/25/21 09:20 Review of Systems ROS Statement: Those systems with pertinent positive or pertinent negative responses have been documented in the HPI. ROS Other: All systems not noted in ROS Statement are negative. Constitutional: Denies: fever Eyes: Denies: eye pain ENT: Denies: ear pain Respiratory: Denies: cough Cardiovascular: Denies: chest pain Endocrine: Denies: fatigue Gastrointestinal: Reports: as per HPI. Denies: abdominal pain Genitourinary: Denies: dysuria Musculoskeletal: Denies: back pain Skin: Denies: rash Neurological: Reports: paresthesias. Denies: weakness Past Medical History Past Medical History: Cancer, Hypertension Additional Past Medical History / Comment(s): varicose veins, arrthymia,, hx prostate cancer History of Any Multi-Drug Resistant Organisms: None Reported Past Surgical History: Cardiac Valve Replacement, Heart Catheterization With Stent, Hernia Repair, Orthopedic Surgery, Prostate Surgery, Tonsillectomy Additional Past Surgical History / Comment(s): 3 fingers amputated left hand due to industrial accident, cataracts, cardiac valve sugery 07/31/2013. ( one replaced and one repaired). Past Anesthesia/Blood Transfusion Reactions: No Reported Reaction Date of Last Stent Placement:: 07/2013 Past Psychological History: No Psychological Hx Reported Smoking Status: Light tobacco smoker Past Alcohol Use History: Occasional Past Drug Use History: None Reported - Past Family History Brother(s) Family Medical History: Cancer General Exam Limitations: no limitations General appearance: alert, in no apparent distress Eye exam: Present: normal appearance Neck exam: Present: normal inspection Respiratory exam: Present: normal lung sounds bilaterally Cardiovascular Exam: Present: regular rate, normal rhythm Expanded Peripheral pulses: 2+: Radial (R), Radial (L), Dorsalis Pedis (R), Dorsalis Pedis (L) GI/Abdominal exam: Present: soft. Absent: tenderness Extremities exam: Present: normal inspection, full ROM, normal capillary refill. Absent: tenderness Neurological exam: Present: alert. Absent: motor sensory deficit Psychiatric exam: Present: normal affect, normal mood Skin exam: Present: normal color. Absent: cyanosis Course Vital Signs 08/25/21 08:55 Temperature 98.1 F Pulse Rate 67 Respiratory 16 Rate Blood Pressure 119/65 O2 Sat by Pulse 97 Oximetry Medical Decision Making - Medical Decision Making Patient reevaluated and states he is feeling better following fluids. Patient updated on results and need for follow-up. - Lab Data Result diagrams: 08/25/21 09:14 08/25/21 09:14 Lab Results 08/25/21 08/25/21 08/25/21 Range/Units 09:14 09:14 09:14 WBC 5.9 (3.8-10.6) k/uL RBC 4.39 (4.30-5.90) m/uL Hgb 13.4 (13.0-17.5) gm/dL Hct 40.6 (39.0-53.0) % MCV 92.4 (80.0-100.0) fL MCH 30.5 (25.0-35.0) pg MCHC 33.0 (31.0-37.0) g/dL RDW 13.3 (11.5-15.5) % Plt Count 268 (150-450) k/uL MPV 8.4 Neutrophils % 72 % Lymphocytes % 15 % Monocytes % 6 % Eosinophils % 3 % Basophils % 1 % Neutrophils # 4.2 (1.3-7.7) k/uL Lymphocytes # 0.9 L (1.0-4.8) k/uL Monocytes # 0.4 (0-1.0) k/uL Eosinophils # 0.2 (0-0.7) k/uL Basophils # 0.0 (0-0.2) k/uL Sodium 136 L (137-145) mmol/L Potassium 4.5 (3.5-5.1) mmol/L Chloride 104 (98-107) mmol/L Carbon Dioxide 26 (22-30) mmol/L Anion Gap 6 mmol/L BUN 17 (9-20) mg/dL Creatinine 1.26 H (0.66-1.25) mg/dL Est GFR (CKD-EPI)AfAm 60 (>60 ml/min/1.73 sqM) Est GFR (CKD-EPI)NonAf 52 (>60 ml/min/1.73 sqM) Glucose 114 H (74-99) mg/dL Plasma Lactic Acid Donaldo (0.7-2.0) mmol/L Calcium 9.0 (8.4-10.2) mg/dL Phosphorus 3.8 (2.5-4.5) mg/dL Magnesium 1.9 (1.6-2.3) mg/dL Total Bilirubin 0.5 (0.2-1.3) mg/dL AST 25 (17-59) U/L ALT 21 (4-49) U/L Alkaline Phosphatase 59 (38-126) U/L Total Protein 6.5 (6.3-8.2) g/dL Albumin 3.9 (3.5-5.0) g/dL TSH 3.450 (0.465-4.680) mIU/L Free T4 1.53 (0.78-2.19) ng/dL Free T3 pg/mL 3.5 (2.8-5.3) pg/ml Urine Color Yellow Urine Appearance Clear (Clear) Urine pH 7.0 (5.0-8.0) Ur Specific [place] 1.016 (1.001-1.035) Urine Protein Trace H (Negative) Urine Glucose (UA) Negative (Negative) Urine Ketones Negative (Negative) Urine Blood Negative (Negative) Urine Nitrite Negative (Negative) Urine Bilirubin Negative (Negative) Urine Urobilinogen <2.0 (<2.0) mg/dL Ur Leukocyte Esterase Negative (Negative) Coronavirus (PCR) (Not Detectd) 08/25/21 08/25/21 Range/Units 09:14 09:14 WBC (3.8-10.6) k/uL RBC (4.30-5.90) m/uL Hgb (13.0-17.5) gm/dL Hct (39.0-53.0) % MCV (80.0-100.0) fL MCH (25.0-35.0) pg MCHC (31.0-37.0) g/dL RDW (11.5-15.5) % Plt Count (150-450) k/uL MPV Neutrophils % % Lymphocytes % % Monocytes % % Eosinophils % % Basophils % % Neutrophils # (1.3-7.7) k/uL Lymphocytes # (1.0-4.8) k/uL Monocytes # (0-1.0) k/uL Eosinophils # (0-0.7) k/uL Basophils # (0-0.2) k/uL Sodium (137-145) mmol/L Potassium (3.5-5.1) mmol/L Chloride (98-107) mmol/L Carbon Dioxide (22-30) mmol/L Anion Gap mmol/L BUN (9-20) mg/dL Creatinine (0.66-1.25) mg/dL Est GFR (CKD-EPI)AfAm (>60 ml/min/1.73 sqM) Est GFR (CKD-EPI)NonAf (>60 ml/min/1.73 sqM) Glucose (74-99) mg/dL Plasma Lactic Acid Donaldo 1.6 (0.7-2.0) mmol/L Calcium (8.4-10.2) mg/dL Phosphorus (2.5-4.5) mg/dL Magnesium (1.6-2.3) mg/dL Total Bilirubin (0.2-1.3) mg/dL AST (17-59) U/L ALT (4-49) U/L Alkaline Phosphatase (38-126) U/L Total Protein (6.3-8.2) g/dL Albumin (3.5-5.0) g/dL TSH (0.465-4.680) mIU/L Free T4 (0.78-2.19) ng/dL Free T3 pg/mL (2.8-5.3) pg/ml Urine Color Urine Appearance (Clear) Urine pH (5.0-8.0) Ur Specific [place] (1.001-1.035) Urine Protein (Negative) Urine Glucose (UA) (Negative) Urine Ketones (Negative) Urine Blood (Negative) Urine Nitrite (Negative) Urine Bilirubin (Negative) Urine Urobilinogen (<2.0) mg/dL Ur Leukocyte Esterase (Negative) Coronavirus (PCR) Not Detected (Not Detectd) Disposition Clinical Impression: Paresthesia Disposition: HOME SELF-CARE Condition: Stable Instructions (If sedation given, give patient instructions): Paresthesia (ED) Additional Instructions: Please try to increase fluids. Please follow-up to primary care physician in t he next day or 2 for recheck. Return for weakness, worsening or change in symptoms, or other concerns. Is patient prescribed a controlled substance at d/c from ED?: No Referrals: Soila Carlton MD [Primary Care Provider] - 1-2 days Time of Disposition: 10:21
[2021-08-25 09:25] LABS: Appearance,Urine Clear (Clear); Bilirubin,Urine Negative (Negative); Blood,Urine Negative (Negative); Color,Urine Yellow; Glucose,Urine (UA) Negative (Negative); Ketones,Urine Negative (Negative); Leukocyte Esterase,Urine Negative (Negative); Nitrite,Urine Negative (Negative); Protein,Urine Trace (Negative); Specific Gravity,Urine 1.016 (1.001-1.035); Urobilinogen,Urine <2.0 mg/dL (<2.0)
[2021-08-25 09:31] LABS: Basophils % (A) 1 %; Eosinophils # (A) 0.2 k/uL (0-0.7); Eosinophils % (A) 3 %; HCT 40.6 % (39.0-53.0); HGB 13.4 gm/dL (13.0-17.5); Lymphocytes # (A) 0.9 k/uL (1.0-4.8); Lymphocytes % (A) 15 %; MCH 30.5 pg (25.0-35.0); MCV 92.4 fL (80.0-100.0); Mean Platelet Volume 8.4; Monocytes # (A) 0.4 k/uL (0-1.0); Monocytes % (A) 6 %; Neutrophils # (A) 4.2 k/uL (1.3-7.7); Neutrophils % (A) 72 %; Platelet Count 268 k/uL (150-450); RBC 4.39 m/uL (4.30-5.90); RDW 13.3 % (11.5-15.5); WBC 5.9 k/uL (3.8-10.6)
[2021-08-25 09:47] LABS: Albumin 3.9 g/dL (3.5-5.0); Magnesium 1.9 mg/dL (1.6-2.3); Phosphorus 3.8 mg/dL (2.5-4.5); Potassium 4.5 mmol/L (3.5-5.1); Total Bilirubin 0.5 mg/dL (0.2-1.3); Total Protein 6.5 g/dL (6.3-8.2)
[2021-08-25 10:03] LABS: T4, Free (Free Thyroxine) 1.53 ng/dL (0.78-2.19)
== END 2021-08-25 11:00 | disposition home or self-care (01) ==
LOC: EC 08:43
DX: R20.2 Paresthesia of skin (principal); I10 Essential (primary) hypertension; F17.200 Nicotine dependence, unspecified, uncomplicated; Z20.822 Contact with and (suspected) exposure to COVID-19
CPT/HCPCS: 36415; 80053; 81003; 83605; 83735; 84100; 84439; 84443; 84481; 85025; 87635

== ENCOUNTER → 2021-09-14 | Outpatient (CLI) | payer MEDICARE, BC ==
--- NOTE | 2021-09-14 15:49 | CT ---
EXAMINATION TYPE: CT brain curry wo con DATE OF EXAM: 09/14/2021 COMPARISON: 01/04/2015 HISTORY: Paresthesia of skin, right arm weakness and numbness CT DLP: 1510.4 mGycm, Automated exposure control for dose reduction was used. CONTRAST: None CT of the brain is performed utilizing 3 mm thick sections through the posterior fossa and 3 mm thick sections through the remaining calvarium. Study is performed within 24 hours of arrival to the hospital. No abnormal hyperdensity is present to suggest an acute intracranial hemorrhage. No mass lesion is evident. There is hypodensity through the right cerebellum compatible with infarct. This may be subacute. Cathie ventricular white matter hypodensity is present. This is nonspecific and can be related to microvascu lar ischemic change. Some focal hypodensity is within the left danielle radiata. Ventricles and sulci are prominent for the patient age. Paranasal sinuses and mastoid air cells within the ostab-ac-lacm are clear. IMPRESSIONS: 1. Chronic appearing periventricular white matter ischemic type changes. 2. Subacute infarct is not excluded within the right cerebellum. This is an interval change from comp arison. CT cervical spine. COMPARISON: None CT of the cervical spine is performed in the axial plane at 2 mm thick sections. Reconstructed image s in the coronal, and sagittal plane are reviewed on the computer. No acute fractures are evident. Vertebral body alignment is normal. There is loss of disc height throughout the cervical spine greatest at the C5-6 level. Vertebral body heights are preserved. No spinal canal stenosis is evident. No neural foraminal stenosis is evident. IMPRESSIONS: 1. Normal CT cervical spine.
== END | disposition home or self-care (01) ==
LOC: RADCTMAIN 12:35
PROVIDERS: ATTEND Internal Medicine
DX: R20.2 Paresthesia of skin (principal); I67.82 Cerebral ischemia
CPT/HCPCS: 70450; 72125

== ENCOUNTER 2021-09-26 10:20 | Day surgery (SDC) | payer MEDICARE, BC ==
[2021-09-25 08:58] VITALS: BMI 18.4
[2021-09-26] MEDS ORDERED: SODIUM CHLORIDE 0.9% 500 ML 500 ML IV ONE (11:28)
[2021-09-26] MEDS ORDERED: fentaNYL (PF) 50 MCG/ML 2 ML AMP ONE (12:05)
[2021-09-26] MEDS: BENZOCAINE SPRAY 1 CAN TOPICAL ONE ×3 (12:10→12:30)
[2021-09-26] MEDS ORDERED: fentaNYL (PF) 50 MCG/ML 2 ML AMP IV ONE (12:27)
[2021-09-26] MEDS ORDERED: MIDAZOLAM 2 MG/2 ML VIAL IV ONE (12:27)
--- NOTE | 2021-09-26 13:21 | CA ---
Transthoracic Echo Report Name: Moses Sue Age: 85 Gender: M : 1935 Exam Date: 09/26/2021 12:15 Exam Location: [facility] [facility] Ht (in): 72 Wt (lb): Ordering Physician: Jam Singh MD ([id number]) Attending/Referring Phys: Samantha SCHRADER Sterile Supervisor Procedure CPT: Indications: aortic mitral valve disease Cardiac Hx: Aidan switched to Limited Echo for bubble study:Pt uaable to swallow probe. Technical Quality: Good Contrast 1: Total Dose (mL): Contrast 2: Total Dose (mL): MEASUREMENTS (Male / Female) Normal Values FINDINGS Left Ventricle Right Ventricle Right Atrium Left Atrium Bubble study performed, Communication between upper chanbers of the heart. Mitral Valve Aortic Valve Tricuspid Valve Pulmonic Valve Pericardium Aorta CONCLUSIONS Limited echo to assess PFO + PFO versus ASD measuring approximately 0.5 cm with bidirectional flow by color Doppler and large amount of bubble communication between the intra-atrial septum. Previewed by: Dr. Joe Brice DO (Electronically Signed) Final Date: 26 September 2021 13:21
[2021-09-26 16:52] VITALS: RESP 16
[2021-09-26 16:55] VITALS: BP 105/57; PULSE 78
--- NOTE | 2021-09-27 08:27 | ECHOT ---
TRANSESOPHAGEAL ECHOCARDIOGRAM INDICATION: CVA. PROCEDURE NOTE: After obtaining informed consent, we attempted transesophageal echocardiogram in left lateral position. The patient received Xylocaine spray, intravenous Versed and fentanyl. He had difficulty swallowing the tube and after multiple attempts, I decided to abort the procedure. We obtained subcostal transthoracic images and documented left- to-right shunt by color-flow Doppler and an agitated saline contrast study also showed [id number] shunt. The patient has bidirectional shunt through what appears like a small atrial septal defect. I am going to have Dr. Fernández the rewards consultant review these images and consider device closure of the same. MMODL / IJN: [id number] /
== END 2021-09-26 13:58 | disposition home or self-care (01) ==
LOC: CATHCVL 10:20
PROVIDERS: ATTEND Internal Medicine Cardiovascular Disease
DX: I63.9 Cerebral infarction, unspecified (principal); I71.2 Thoracic aortic aneurysm, without rupture; I34.0 Nonrheumatic mitral (valve) insufficiency; Z95.2 Presence of prosthetic heart valve; Z87.891 Personal history of nicotine dependence; Z79.899 Other long term (current) drug therapy
CPT/HCPCS: 93308; J2250; J3010

== ENCOUNTER 2021-11-08 05:51 | Day surgery (SDC) | payer MEDICARE, BC ==
[2021-10-31 11:26] VITALS: BMI 18.0
[2021-11-08] MEDS ORDERED: HEPARIN SODIUM,PORCINE 2,500 UNIT in SODIUM CHLORIDE 0.9% 250 ML IRRIGATION PRN (05:56)
[2021-11-08] MEDS ORDERED: HEPARIN SODIUM,PORCINE 10,000 UNIT in SODIUM CHLORIDE 0.9% 1,000 ML IRRIGATION PRN (05:56)
[2021-11-08] MEDS ORDERED: ASPIRIN 325 MG TAB PO PRN (05:56)
[2021-11-08] MEDS ORDERED: ZOLPIDEM 5 MG TAB PO PRN (05:56)
[2021-11-08] MEDS ORDERED: ALPRAZolam 0.5 MG TAB PO PRN (05:56)
[2021-11-08] MEDS ORDERED: SODIUM CHLORIDE 0.9% 1,000 ML in EMPTY BAG 1 BAG IV ONE (05:56)
[2021-11-08] MEDS ORDERED: ALPRAZolam 0.25 MG TAB PO PRN (05:56)
[2021-11-08] MEDS ORDERED: ASPIRIN 81 MG ONE (06:08)
[2021-11-08] MEDS ORDERED: SODIUM CHLORIDE 0.9% 1,000 ML IV ONE (06:15)
[2021-11-08 06:25] LABS: Basophils # (A) 0.1 k/uL (0-0.2); Basophils % (A) 1 %; Eosinophils # (A) 0.2 k/uL (0-0.7); Eosinophils % (A) 3 %; HGB 14.4 gm/dL (13.0-17.5); Lymphocytes # (A) 1.4 k/uL (1.0-4.8); Lymphocytes % (A) 19 %; MCH 29.8 pg (25.0-35.0); MCHC 31.4 g/dL (31.0-37.0); MCV 94.9 fL (80.0-100.0); Mean Platelet Volume 8.7; Monocytes # (A) 0.5 k/uL (0-1.0); Monocytes % (A) 6 %; Neutrophils # (A) 5.3 k/uL (1.3-7.7); Neutrophils % (A) 69 %; Platelet Count 282 k/uL (150-450); RBC 4.85 m/uL (4.30-5.90); RDW 13.1 % (11.5-15.5); WBC 7.6 k/uL (3.8-10.6)
[2021-11-08 06:37] LABS: Calcium 9.3 mg/dL (8.4-10.2); Potassium 4.1 mmol/L (3.5-5.1)
[2021-11-08] MEDS ORDERED: MIDAZOLAM 2 MG/2 ML VIAL IV ONE (08:02)
[2021-11-08] MEDS ORDERED: fentaNYL (PF) 50 MCG/ML 2 ML AMP IV ONE (08:02)
[2021-11-08] MEDS ORDERED: LIDOCAINE 1% INJ 10MG/ML (30 ML VIAL-PF) SQ ONE (08:03)
[2021-11-08] MEDS ORDERED: CLOPIDOGREL 75 MG TAB PO ONE (08:09)
[2021-11-08] MEDS: HEPARIN SODIUM 1,000 UN/ML (10ML VL) IV ONE ×3 (08:10→09:02)
--- NOTE | 2021-11-08 13:15 | P.PCN ---
Description of Procedure: TRANSCATHETER CLOSURE OF INTERATRIAL COMMUNICATION PROCEDURES PERFORMED: 1. Closure of interatrial communication via a right femoral venous percutaneous approach using a 30mm Amplatzer Occluder device. 2. Intracardiac echocardiography using an 8-Icelandic AcuNav ultrasound catheter 3. RFV access under direct U/S visualization x 2 OPERATORS: 1. Joe Brice DO interventional cardiology INDICATIONS: History of thromboembolic CVA. Interatrial communication/PFO with color flow across inter-atrial septum and positive bubble study by PATRICIA. SEDATION: Under my direct supervision the patient was administered moderate conscious sedation with Versed and Fentanyl for a total of 63 minutes. PRPOCEDURE SUMMARY: Prior to sedation, the risks, benefits and alternatives of the procedure were discussed with the patient in detail and all questions were answered to the patient's satisfaction. Both verbal and written consents were obtained. The patient was transported to the cardiac catheterization suite and prepped and draped in the usual sterile fashion for access to the right groin. The patient received conscious sedation in the form of Versed and Fentanyl intravenously. 2% lidocaine was infused into the right groin for local anesthesia. Then, under direct ultrasound visualization, right femoral vein was accessed using micropuncture technique and two 8-Icelandic 11 cm sheaths were placed into the right femoral vein. The 8-Icelandic AcuNav ICE ultrasound catheter was then advanced through into the right atrium where intracardiac echocardiography was performed. PRE PROCEDURE ULTRASOUND: This demonstrated no evidence of pericardial effusion. It demonstrated normal appearing aortic and mitral valves. Overall the left ventricular function and chamber size appeared within normal limits. The LV function appeared preserved with no significant wall motion abnormalities. There was color flow visualized across the inter-atrial septum with ICE. The tricuspid valve appeared normal and the RV appeared normal in size. The visualized portions of the left atrium and left atrial appendage demonstrated no significant abnormalities. After images were obtained with the ICE catheter, a 6-Icelandic multipurpose catheter was inserted into the RFV and was used to cross the septum into the left atrium. Heparin was given to keep ACT > 200-250. The catheter was then advanced into the LA and placed in the L superior pulmonary vein. A 0.035 260 cm Amplatzer wire was then advanced via the catheter and placed in the vein. Th e catheter was then removed and the 8-Icelandic sheath was also removed over the Amplatzer wire. This was exchanged for a 10 Icelandic 52-vnnivo-xevw delivery sheath with introducer. This was advanced to the septal defect where the sheath was then advanced across the defect over the Amplatzer wire. The introducer was removed and blood was drawn. The Amplatzer wire was then removed. A 30mm Amplatzer PFO occluder device was then opened, prepped and then loaded into the sheath. Under fluoroscopy and ultrasound guidance, the Amplatzer occluder was advanced through the edge of the sheath. The left atrial side was deployed and was pulled back to the interatrial septum and the right atrial side was deployed. With the device still captured, intracardiac echocardiography was performed demonstrating good capture on all 6 rims with no impingement on valvular function. The delivery system was then released and removed. The final intracardiac echocardiographic images were again once obtained. POST DELIVERY INTRACARDIAC ECHOCARDIOGRAPHIC IMAGES: This demonstrated again no evidence of pericardial effusion. All 6 rims were visualized and demonstrated adequate purchase and the device in stable position. There was no further evidence of interatrial communication by color flow Doppler. The aortic and mitral valves appeared to be functioning appropriately with no impingement of flow. Again overall the left ventricular function appeared within normal limits and again, no effusion was noted. At this point, 8-Icelandic ICE catheter and the torque-view sheath was removed A Z stitch was placed to achieve hemostasis. The patient was transferred to the CVSU in stable condition. COMPLICATIONS: None. FINAL IMPRESSIONS: Successful closure of a PFO with a 30mm Amplatzer PFO occluder device. No evidence of complication, arrhythmia or other noted. RECOMMENDATIONS: A limited transthoracic echocardiogram will be obtained in the morning. The patient will be transferred to the floor, monitoring overnight. Will plan for discharge in the morning. Aspirin daily, Plavix 75 mg daily, followup in the clinic in approximately 1 week as previously scheduled. Antibiotic prophylaxis for any procedure for one year.
[2021-11-08 16:45] LABS: Glucose,Whole Blood 100 mg/dL (70-110)
[2021-11-09] MEDS ORDERED: CLOPIDOGREL 75 MG TAB PO SCH (09:00)
--- NOTE | 2021-11-09 12:23 | CA ---
Transthoracic Echo Report Name: Moses Sue Age: 85 Gender: M : 1935 Exam Date: 11/09/2021 11:25 Exam Location: [facility] Ht (in): 69 Wt (lb): 121 Ordering Physician: Joe Brice DO ([id number]) Attending/Referring Phys: Solar Installation Manager Tiffany Parks RDCS Procedure CPT: Indications: s/p PFO closure Cardiac Hx: Pfo closure Technical Quality: Technically difficult study Contrast 1: Total Dose (mL): Contrast 2: Total Dose (mL): MEASUREMENTS (Male / Female) Normal Values FINDINGS Left Ventricle Right Ventricle Right Atrium Left Atrium PFO closure device seen with no shunt. Mitral Valve Aortic Valve Tricuspid Valve Pulmonic Valve Pericardium No pericardial effusion. Aorta CONCLUSIONS PFO occluder in proper position with no shunt. No pericardial effusion Previewed by: Dr. Joe Brice DO (Electronically Signed) Final Date: 09 November 2021 12:23
[2021-11-09 12:25] VITALS: BP 139/58; PULSE 79; RESP 20; TEMP 97.7
--- NOTE | 2021-11-09 13:06 | P.DS ---
Providers Attending physician: Joe Brice DO Primary care physician: Soila Carlton MD Hospital Course: Patient has a history of recent cryptogenic stroke and PFO was evaluated for PFO closure. Patient eventually underwent successful PFO closure on 11/08/2021 from a right femoral venous approach with placement of a 30 mm Amplatz occluder device. On 11/09/2021 patient was stable with right femoral site without any hematoma and echocardiogram showed proper positioning of device with no pericardial effusion. He was placed on aspirin and Plavix to be continued for 6 months with outpatient follow-up in [address] Singh. Plan - Discharge Summary Discharge Rx Participant: Yes New Discharge Prescriptions: New Clopidogrel [Plavix] 75 mg PO DAILY #90 tablet No Action Vit C/E/Zn/Coppr/Lutein/Zeaxan [Preservision Areds 2 Softgel] 2 cap PO DAILY Metoprolol Tartrate [Lopressor] 12.5 mg PO DAILY Aspirin [Adult Low Dose Aspirin EC] 81 mg PO DAILY Discharge Medication List Vit C/E/Zn/Coppr/Lutein/Zeaxan [Preservision Areds 2 Softgel] 2 cap PO DAILY 12/29/18 [History] Metoprolol Tartrate [Lopressor] 12.5 mg PO DAILY 08/25/21 [History] Aspirin [Adult Low Dose Aspirin EC] 81 mg PO DAILY 10/31/21 [History] Clopidogrel [Plavix] 75 mg PO DAILY #90 tablet 11/09/21 [Rx] Patient Instructions/Handouts: *Surgery [facility] - After Heart Catheterization - [employer] Dealer Instructions Discharge Disposition: HOME SELF-CARE
== END 2021-11-09 12:42 | disposition home or self-care (01) ==
LOC: CATHCVL 05:51 → 3SCARD 09:00 → CATHCVL 15:01 → 3SCARD 15:01 → CATHCVL 11-09 12:42
PROVIDERS: ATTEND Internal Medicine
DX: Q21.1 Atrial septal defect (principal); F17.210 Nicotine dependence, cigarettes, uncomplicated; I63.9 Cerebral infarction, unspecified; Z95.2 Presence of prosthetic heart valve; I34.0 Nonrheumatic mitral (valve) insufficiency; Z79.82 Long term (current) use of aspirin; Z79.899 Other long term (current) drug therapy
CPT/HCPCS: 93580; 93308; 93662; 86900; 86901; 80048; 85025; 86850; 87635; C1769 ×4; C1894; C1817; C1759; J2250; J0690; J2001; J3010; J1644

== ENCOUNTER 2022-11-07 05:48 | Emergency (ER) | payer MEDICARE, BC ==
[2022-11-07 05:55] VITALS: RESP 18; TEMP 98
[2022-11-07] MEDS ORDERED: LIDOCAINE 5% PATCH TOPICAL STA (06:04)
[2022-11-07] MEDS ORDERED: KETOROLAC 15 MG/ML 1 ML VIAL IM STA (06:04)
--- NOTE | 2022-11-07 06:11 | ED ---
General Adult HPI - General Chief complaint: Back Pain/Injury Stated complaint: Fall, Back Pain Time Seen by Provider: 11/07/22 05:58 Source: patient, RN notes reviewed, old records reviewed Mode of arrival: ambulatory Limitations: no limitations - History of Present Illness Initial comments: Patient is an 86-year-old male with past medical history remarkable for atrial fibrillation, prior stroke, frequent falls who is on Protonix aspirin and Plavix presents emergency Department 2 days after falling. States he fell on grass onto his front side. States he felt some right lateral inferior rib pain and since then it has been radiating around towards his back. Worse with movement. Denies any midline back pain. Denies any abdominal pain, nausea, vomiting. His pain is controlled when he is sitting still. Has no other acute complaints at this time. He is concerned that he may have injured his ribs. No other obvious injuries. Did not hit his head. Did not lose consciousness. Denies any leg pain or hip pain. - Related Data Home Medications Medication Instructions Recorded Confirmed Vit C/E/Zn/Coppr/Lutein/Zeaxan 2 cap PO DAILY 12/29/18 11/07/21 [Preservision Areds 2 Softgel] Metoprolol Tartrate [Lopressor] 12.5 mg PO DAILY 08/25/21 11/07/21 Aspirin [Adult Low Dose Aspirin EC] 81 mg PO DAILY 10/31/21 11/07/21 Previous Rx's Medication Instructions Recorded Clopidogrel [Plavix] 75 mg PO DAILY #90 tablet 11/09/21 Lidocaine 5% Patch [Lidoderm 5% 1 patch TOPICAL DAILY PRN 14 Days 11/07/22 Patch] #14 patch Allergies Allergy/AdvReac Type Severity Reaction Status Date / Time No Known Allergies Allergy Verified 11/07/22 05:56 Review of Systems ROS Statement: Those systems with pertinent positive or pertinent negative responses have been documented in the HPI. Review of Systems: CONST: Denies fever EYES: Denies blurry vision ENT: Denies nasal congestion C/V: Denies Chest pain RESP: Denies shortness of breath GI: Denies abdominal pain : Denies dysuria SKIN: Denies rash. MSK: Endorses rib pain NEURO: Denies headache ROS Other: All systems not noted in ROS Statement are negative. 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 HEAD: Normal with no signs of head trauma. EYES: PERRLA, EOMI, conjunctiva normal, no discharge. ENT: Hearing grossly intact, normal oropharynx. RESPIRATORY: Clear breath sounds bilaterally. No wheezes, rales, or rhonchi. No flail chest present. C/V: Regular rate and rhythm. S1 and S2 auscultated, peripheral pulses 2+ and intact throughout ABD: Abd is soft, nontender, nondistended EXT: Normal range of motion, no obvious deformity. Tenderness to palpation over the right inferior ribs and intercostal spaces in the lateral clavicular line with radiation along the ribs spaces towards the back. No midline cervical, thoracic, lumbar spine tenderness to palpation. No step-offs or deformities. No flail chest seen.Chronic deformity to left hand secondary to factory accident. SKIN: No rashes or lesions observed on exposed skin. NEURO: Alert and oriented times 4. Limitations: no limitations Course Vital Signs 11/07/22 05:52 Temperature 98 F Pulse Rate 103 H Respiratory 18 Rate Blood Pressure 129/71 O2 Sat by Pulse 98 Oximetry Medical Decision Making - Medical Decision Making Was pt. sent in by a medical professional or institution (, PA, POLLUTION CONTROL CHEMIST, urgent care, hospital, or long-term...) When possible be specific @ -No Did you speak to anyone other than the patient for history (EMS, parent, family, police, friend...)? What history was obtained from this source @ -No Did you review nursing and triage notes (agree or disagree)? Why? @ -I reviewed and agree with nursing and triage notes Were old charts reviewed (outside hosp., previous admission, EMS record, old EKG, old radiological studies, urgent care reports/EKG's, long-term records)? Report findings @ -No old charts were reviewed Differential Diagnosis (chest pain, altered mental status, abdominal pain women, abdominal pain men, vaginal bleeding, weakness, fever, dyspnea, syncope, headache, dizziness, GI bleed, back pain, seizure, CVA, palpatations, mental health, musculoskeletal)? @ -Rib fracture, rib contusion, pneumothorax. This list is not all inclusive. EKG interpreted by me (3pts min.). @ -None done X-rays interpreted by me (1pt min.). @ -Chest x-ray reveals no obvious acute fracture of the ribs or pneumothorax. No obvious infectious process either. CT interpreted by me (1pt min.). @ -None done U/S interpreted by me (1pt. min.). @ -None done What testing was considered but not performed or refused? (CT, X-rays, U/S, labs)? Why? @ -None What meds were considered but not given or refused? Why? @ -None Did you discuss the management of the patient with other professionals (professionals i.e. , PA, POLLUTION CONTROL CHEMIST, lab, RT, psych nurse, school social worker, distance education teacher, teacher, patrol officer, patient case manager)? Give summary @ -No Was smoking cessation discussed for >3mins.? @ -No Was critical care preformed (if so, how long)? @ -No Were there social determinants of health that impacted care today? How? (Homelessness, low income, unemployed, alcoholism, drug addiction, transportation, low edu. Level, literacy, decrease access to med. care, care home, rehab)? @ -No Was there de-escalation of care discussed even if they declined (Discuss DNR or withdrawal of care, Hospice)? DNR status @ -No What co-morbidities impacted this encounter? (DM, HTN, Smoking, COPD, CAD, Cancer, CVA, ARF, Chemo, Hep., AIDS, mental health diagnosis, sleep apnea, morbid obesity)? @ -None Was patient admitted / discharged? Hospital course, mention meds given and route, prescriptions, significant lab abnormalities, going to OR and other pertinent info. @ -Based on patient's presentation and physical exam, presents multiple days after a fall in which she suffered injured right-sided ribs. He is concerned he may have injured the ribs. We'll obtain a two-view chest x-ray, and symptomatically treat the patient with a lidocaine patch and IM Toradol. He was in agreement this plan. No concern for head trauma. No other injuries. Vital signs within acceptable limits. Patient was in agreement with this plan. Patient's chest x-ray reveals no obvious acute process. No evidence of rib fracture that is obvious or sequelae such as pneumothorax. I updated the patient on the findings. Discussed that management is the same for bruise versus possible isolated broken rib. This includes pain management as well as use of incentive spirometer at home. He will be given one prior to discharge and sent home with a prescription for lidocaine patches. He continues [id number] analgesia medications as needed for pain. Recommended icing it and following up with his PCP. Strict return precautions including signs and symptoms of pneumonia were discussed. He was in agreement this plan. I will provide the patient with a prescription for lidocaine patches. I instructed the patient to follow up with their PCP in the next 1-3 days. I explained that the patient should return to the emergency department if they experience any worsening symptoms. Strict return precautions were discussed with the patient. The patient expressed understanding of these instructions. I answered all questions that the patient had. The patient was discharged home in good condition with their prescriptions and follow up information. Undiagnosed new problem with uncertain prognosis? @ -No Drug Therapy requiring intensive monitoring for toxicity (Heparin, Nitro, Insulin, Cardizem)? @ -No Were any procedures done? @ -No Diagnosis/symptom? @ -Bruised ribs, right-sided chest wall pain Acute, or Chronic, or Acute on Chronic? @ -Acute Uncomplicated (without systemic symptoms) or Complicated (systemic symptoms)? @ -Complicated Side effects of treatment? @ -none Exacerbation, Progression, or Severe Exacerbation] @ -no Poses a threat to life or bodily function? @ -no Disposition Clinical Impression: Bruised ribs, Chest wall pain Disposition: HOME SELF-CARE Condition: Fair Instructions (If sedation given, give patient instructions): Rib Contusion (ED), How to Use an Incentive Spirometer (ED) Prescriptions: Lidocaine 5% Patch [Lidoderm 5% Patch] 1 patch TOPICAL DAILY PRN 14 Days #14 patch PRN Reason: Pain Is patient prescribed a controlled substance at d/c from ED?: No Referrals: Parag Maldonado MD [Primary Care Provider] - 1-2 days Time of Disposition: 06:48
--- NOTE | 2022-11-07 06:43 | XR ---
EXAMINATION TYPE: XR chest 2V DATE OF EXAM: 11/07/2022 COMPARISON: NONE HISTORY: Chest and right rib pain. Mid to upper Upper back pain. Recent fall injury. TECHNIQUE: Frontal and lateral views of the chest are obtained. FINDINGS: Overlying sternal wires are present. There is some chronic parenchymal change thought pres ent without suspicious focal air space opacity, pleural effusion, or pneumothorax seen. The cardiac silhouette size is within normal limits. Surgical change in the heart is present. The osseous struct ures are intact. IMPRESSION: Chronic changes without acute process.
[2022-11-07 07:03] VITALS: BP 113/73; PULSE 99
== END 2022-11-07 07:03 | disposition home or self-care (01) ==
LOC: EC 05:48
DX: S20.211A Contusion of right front wall of thorax, initial encounter (principal); I10 Essential (primary) hypertension; I25.10 Atherosclerotic heart disease of native coronary artery without angina pectoris; Z79.82 Long term (current) use of aspirin; Z79.899 Other long term (current) drug therapy; Z95.2 Presence of prosthetic heart valve; Z87.891 Personal history of nicotine dependence; Z86.73 Personal history of transient ischemic attack (TIA), and cerebral infarction without residual deficits; W19.XXXA Unspecified fall, initial encounter
CPT/HCPCS: 71046; 99283; 96372; J1885

== ENCOUNTER 2023-12-16 03:33 | Emergency (ER) | payer MEDICARE, BC ==
[2023-12-16 03:43] VITALS: BP 150/76; PULSE 106; RESP 16; TEMP 97.5
[2023-12-16] MEDS: LIDOCAINE 1% INJ 10MG/ML (20 ML MDV) SQ ONE (03:58)
--- NOTE | 2023-12-16 04:13 | ED ---
Head Injury HPI - General Chief complaint: Head Injury Stated complaint: Fall Time Seen by Provider: 12/16/23 03:44 Source: patient Mode of arrival: ambulatory Limitations: physical limitation - History of Present Illness Initial comments: 88-year-old male presents emergency department reporting a fall yesterday. States he fell at noon. He hit his head and takes Plavix. He denies loss of consciousness. He has a laceration to his left eyebrow. States that it continued to ooze through the course of the day. He presents now for suture c losure. Patient denies any headache or visual changes. No confusion. No nausea or vomiting. No other alleviating, precipitating or modifying factors - Related Data Home Medications Medication Instructions Recorded Confirmed Vit C/E/Zn/Coppr/Lutein/Zeaxan 2 cap PO DAILY 12/29/18 11/07/21 [Preservision Areds 2 Softgel] Metoprolol Tartrate [Lopressor] 12.5 mg PO DAILY 08/25/21 11/07/21 Aspirin [Adult Low Dose Aspirin EC] 81 mg PO DAILY 10/31/21 11/07/21 Previous Rx's Medication Instructions Recorded Clopidogrel [Plavix] 75 mg PO DAILY #90 tablet 11/09/21 Lidocaine 5% Patch [Lidoderm 5% 1 patch TOPICAL DAILY PRN 14 Days 11/07/22 Patch] #14 patch Allergies/Adverse reactions: Allergies Allergy/AdvReac Type Severity Reaction Status Date / Time No Known Allergies Allergy Verified 12/16/23 03:38 Review of Systems ROS Statement: Those systems with pertinent positive or pertinent negative responses have been documented in the HPI. ROS Other: All systems not noted in ROS Statement are negative. 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, greg cataracts, cardiac valve sugery 07/31/2013, ( one replaced and one repaired)., Cardioversion, Past Anesthesia/Blood Transfusion Reactions: No Reported Reaction Date of Last Stent Placement:: 07/2013 Past Psychological History: No Psychological Hx Reported Smoking Status: Former smoker Past Alcohol Use History: Occasional Past Drug Use History: None Reported - Past Family History Brother(s) Family Medical History: Cancer Additional Family Medical History / Comment(s): colon cancer General Exam Limitations: no limitations General appearance: alert, in no apparent distress Head exam: Present: normocephalic, normal inspection, other (Laceration left eyebrow region measuring 1.5 cm. No active bleeding.) Eye exam: Present: normal appearance, PERRL, EOMI. Absent: scleral icterus, conjunctival injection, periorbital swelling ENT exam: Present: normal exam, mucous membranes moist Neck exam: Present: normal inspection. Absent: tenderness, meningismus, lymphadenopathy Respiratory exam: Present: normal lung sounds bilaterally. Absent: respiratory distress, wheezes, rales, rhonchi, stridor Cardiovascular Exam: Present: regular rate, normal rhythm, normal heart sounds. Absent: systolic murmur, diastolic murmur, rubs, gallop, clicks GI/Abdominal exam: Present: soft, normal bowel sounds. Absent: distended, tenderness, guarding, rebound, rigid Extremities exam: Present: normal inspection, full ROM, normal capillary refill. Absent: tenderness, pedal edema, joint swelling, calf tenderness Back exam: Present: normal inspection Neurological exam: Present: alert, oriented X3, CN II-XII intact Psychiatric exam: Present: normal affect, normal mood Skin exam: Present: warm, dry, intact, normal color. Absent: rash Course Vital Signs 12/16/23 03:40 Temperature 97.5 F L Pulse Rate 106 H Respiratory 16 Rate Blood Pressure 150/76 O2 Sat by Pulse 100 Oximetry Procedures - Laceration Laceration #1 Consent Obtained: verbal consent Indication: laceration Site: face Size (cm): 2 Description: linear Depth: simple, single layer Anesthetic Used: lidocaine 1% Anesthesia Technique: local infiltration Amount (mls): 6 Pre-repair: wound explored, irrigated extensively, deep structures intact Type of Sutures: nylon Size of Sutures: 6-0 Number of Sutures: 4 Technique: simple, interrupted Patient Tolerated Procedure: well, no complications Medical Decision Making - Medical Decision Making Was pt. sent in by a medical professional or institution (AYAKA Hall, GAS MASK ASSEMBLER, urgent care, hospital, or [place] [facility] facility...) When possible be specific @ -No Did you speak to anyone other than the patient for history (EMS, parent, family, police, friend...)? What history was obtained from this source @ -No Did you review nursing and triage notes (agree or disagree)? Why? @ -I reviewed and agree with nursing and triage notes Were old charts reviewed (outside hosp., previous admission, EMS record, old EKG, old radiological studies, urgent care reports/EKG's, [place] [facility] records)? Report findings @ -No old charts were reviewed Differential Diagnosis (chest pain, altered mental status, abdominal pain women, abdominal pain men, vaginal bleeding, weakness, fever, dyspnea, syncope, headache, dizziness, GI bleed, back pain, seizure, CVA, palpatations, mental health, musculoskeletal)? @ -Subdural, subarachnoid, skull fracture, facial laceration EKG interpreted by me (3pts min.). @ -Not done X-rays interpreted by me (1pt min.). @ -None done CT interpreted by me (1pt min.). @ -None done U/S interpreted by me (1pt. min.). @ -None done What testing was considered but not performed or refused? (CT, X-rays, U/S, labs)? Why? @ -CT brain was considered however patient refused to have the study performed. States he is only here to get his laceration repaired What meds were considered but not given or refused? Why? @ -None Did you discuss the management of the patient with other professionals (professionals i.e. AYAKA Hall, GAS MASK ASSEMBLER, lab, RT, psych nurse, social work instructor, quality assurance coordinator, teacher, navigating officer, case reviewer)? Give summary @ -No Was smoking cessation discussed for >3mins.? @ -No Was critical care preformed (if so, how long)? @ -No Were there social determinants of health that impacted care today? How? (Homelessness, low income, unemployed, alcoholism, drug addiction, transportation, low edu. Level, literacy, decrease access to med. care, alf, rehab)? @ -No Was there de-escalation of care discussed even if they declined (Discuss DNR or withdrawal of care, Hospice)? DNR status @ -No What co-morbidities impacted this encounter? (DM, HTN, Smoking, COPD, CAD, Cancer, CVA, ARF, Chemo, Hep., AIDS, mental health diagnosis, sleep apnea, morbid obesity)? @ -None Was patient admitted / discharged? Hospital course, mention meds given and route, prescriptions, significant lab abnormalities, going to OR and other pertinent info. @ -Upon arrival patient seen and evaluated in room 4. Thorough history and physical exam was performed. Patient requesting repair of his facial laceration. He wants no imaging of his head. States that he is only presenting as his laceration keeps oozing. I did perform laceration repair. Instructed him to keep the area clean and dry. He is to follow-up in 5 to 7 days to have his stitches removed and return for any new or worsening symptoms Undiagnosed new problem with uncertain prognosis? @ -No Drug Therapy requiring intensive monitoring for toxicity (Heparin, Nitro, Insulin, Cardizem)? @ -No Were any procedures done? @ -Laceration repair Diagnosis/symptom? @ -Acute fall, acute facial laceration left forehead Acute, or Chronic, or Acute on Chronic? @ -Acute Uncomplicated (without systemic symptoms) or Complicated (systemic symptoms)? @ -Uncomplicated Side effects of treatment? @ -No Exacerbation, Progression, or Severe Exacerbation? @ -No Poses a threat to life or bodily function? How? (Chest pain, [place], [place], pneumonia, PE, COPD, DKA, ARF, appy, cholecystitis, CVA, Diverticulitis, Homicidal, Suicidal, threat to staff... and all critical care pts) @ -No Disposition Clinical Impression: Facial laceration, Fall, Head injury Disposition: HOME SELF-CARE Condition: Stable Instructions (If sedation given, give patient instructions): Laceration (ED) Additional Instructions: Keep the area clean. Return in 5 to 7 days to have your stitches removed. Is patient prescribed a controlled substance at d/c from ED?: No Referrals: Parag Maldonado MD [Primary Care Provider] - 1-2 days Time of Disposition: 04:13
== END 2023-12-16 04:22 | disposition home or self-care (01) ==
LOC: EC 03:33
CPT/HCPCS: 12011; 99283

== ENCOUNTER 2024-01-17 05:00 | Emergency (ER) | payer MEDICARE, BC ==
[2024-01-17 05:05] VITALS: TEMP 98.1
--- NOTE | 2024-01-17 05:47 | ED ---
General Adult HPI - General Chief complaint: Upper Respiratory Infection Stated complaint: Cough Time Seen by Provider: 01/17/24 05:06 Source: patient Mode of arrival: ambulatory Limitations: no limitations - History of Present Illness Initial comments: Patient is a pleasant 88 yo male presenting for cough x 3 week. Dry in nature/nonproductive. No hemoptysis. He denies any chest pain or shortness of breath/difficulty in breathing. Denies headaches or lightheadedness. Denies recent exposure to COVID or flu. Is up-to-date on vaccines with the exception of influenza. Denies abdominal pain nausea vomiting or diarrhea. No lower extremity swelling. No numbness or weakness. - Related Data Home Medications Medication Instructions Recorded Confirmed Vit C/E/Zn/Coppr/Lutein/Zeaxan 2 cap PO DAILY 12/29/18 11/07/21 [Preservision Areds 2 Softgel] Metoprolol Tartrate [Lopressor] 12.5 mg PO DAILY 08/25/21 11/07/21 Aspirin [Adult Low Dose Aspirin EC] 81 mg PO DAILY 10/31/21 11/07/21 Previous Rx's Medication Instructions Recorded Clopidogrel [Plavix] 75 mg PO DAILY #90 tablet 11/09/21 Lidocaine 5% Patch [Lidoderm 5% 1 patch TOPICAL DAILY PRN 14 Days 11/07/22 Patch] #14 patch Azithromycin [Zithromax Z Pack] 1 tab PO DIRECTED #6 tab 01/17/24 Benzonatate [Tessalon Perles] 100 mg PO TID PRN 5 Days #15 01/17/24 capsule Allergies Allergy/AdvReac Type Severity Reaction Status Date / Time No Known Allergies Allergy Verified 01/17/24 05:05 Review of Systems ROS Statement: Those systems with pertinent positive or pertinent negative responses have been documented in the HPI. ROS Other: All systems not noted in ROS Statement are negative. 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, greg cataracts, cardiac valve sugery 07/31/2013, ( one replaced and one repaired)., Cardioversion, Past Anesthesia/Blood Transfusion Reactions: No Reported Reaction Date of Last Stent Placement:: 07/2013 Past Psychological History: No Psychological Hx Reported Smoking Status: Former smoker Past Alcohol Use History: Occasional Past Drug Use History: None Reported - Past Family History Brother(s) Family Medical History: Cancer Additional Family Medical History / Comment(s): colon cancer General Exam - General Exam Comments Initial Comments: PE: CONSTITUTIONAL: No apparent distress, well appearing SKIN: Warm, dry, no jaundice, hives or petechiae EYES: Pupils are equally round, extraocular movements intact without nystagmus, clear conjunctiva, non-icteric sclera HENT: Normocephalic, atraumatic, moist mucus membranes, oropharynx clear without exudates NECK: , Full range of motion, normal appearance PULMONARY: Scant rhonchi in the left upper and mid lobes, no wheezes rales or crackles, normal excursion, no stridor or accessory muscle use CARDIOVASCULAR: Regular rate, rhythm, normal S1 and S2. No appreciated murmurs, rubs or gallops. Extremities well perfused, No lower extremity edema GASTROINTESTINAL: Soft, active bowel sounds throughout, non-tender, non- distended, no palpable masses, no rebound or guarding. No hepatosplenomegaly MUSCULOSKELETAL: Extremities have no gross deformity, no edema, redness, or swelling. No calf swelling NEUROLOGIC:_a/o x 3, GCS 15, normal mentation and speech. Moves all extremities x 4 without motor or sensory deficit PSYCHIATRIC:_normal mood and affect, thought process is clear and linear Limitations: no limitations Course Vital Signs 01/17/24 01/17/24 05:04 05:52 Temperature 98.1 F Pulse Rate 109 H 104 H Respiratory 18 20 Rate Blood Pressure 145/79 144/79 O2 Sat by Pulse 99 95 Oximetry Medical Decision Making - Medical Decision Making Was pt. sent in by a medical professional or institution (, PA, CHARTERED FINANCIAL ANALYST, urgent care, hospital, or usp...) When possible be specific @ -No Did you speak to anyone other than the patient for history (EMS, parent, family, police, friend...)? What history was obtained from this source @ -No Did you review nursing and triage notes (agree or disagree)? Why? @ -I reviewed and agree with nursing and triage notes Were old charts reviewed (outside hosp., previous admission, EMS record, old EKG, old radiological studies, urgent care reports/EKG's, usp records)? Report findings @ -Medical records reviewed Differential Diagnosis (chest pain, altered mental status, abdominal pain women, abdominal pain men, vaginal bleeding, weakness, fever, dyspnea, syncope, headache, dizziness, GI bleed, back pain, seizure, CVA, palpatations, mental health, musculoskeletal)? @ -Differential diagnosis remains broad however top considerations include acute bronchitis, URI, atypical pneumonia, CAP, GERD this is not all inclusive list EKG interpreted by me (3pts min.). @ -As above X-rays interpreted by me (1pt min.). @No obvious consolidations, effusions or cardiomegaly CT interpreted by me (1pt min.). @ -None done U/S interpreted by me (1pt. min.). @ -None done What testing was considered but not performed or refused? (CT, X-rays, U/S, labs)? Why? @ -None What meds were considered but not given or refused? Why? @ -None Did you discuss the management of the patient with other professionals (professionals i.e. , PA, CHARTERED FINANCIAL ANALYST, lab, RT, psych nurse, psychologist social, bin worker, teacher, peace officer, renal case manager)? Give summary @ -No Was smoking cessation discussed for >3mins.? @ -No Was critical care preformed (if so, how long)? @ -No Were there social determinants of health that impacted care today? How? (Homelessness, low income, unemployed, alcoholism, drug addiction, transportation, low edu. Level, literacy, decrease access to med. care, fdc, rehab)? @ -No Was there de-escalation of care discussed even if they declined (Discuss DNR or withdrawal of care, Hospice)? @ -No What co-morbidities impacted this encounter? (DM, HTN, Smoking, COPD, CAD, Cancer, CVA, ARF, Chemo, Hep., AIDS, mental health diagnosis, sleep apnea, morbid obesity)? @ -None Was patient admitted / discharged? Hospital course, mention meds given and route, prescriptions, significant lab abnormalities, going to OR and other pertinent info. @ -Discharge- Pleasant 88-year-old gentleman presenting for dry cough x 3 weeks. On my assessment patient well-appearing, afebrile. Is slightly tachycardic on arrival, on exam normal S1-S2 on exam, regular rate and rhythm, extremities well-perfused, there is rhonchi in the left upper and mid lobe, no accessory muscle use rales, or stridor. Discussed with patient plan for XR due to focal breath sounds. Tessalon perles, due to focal breath sounds on exam I do anticipate initiating azithromycin for suspected pneumonia. Pt agreeable with POC. XR showed age indeterminate fracure post 7th rib. Updated pt to findings. Discussed plan for azithromycin due to clinically suspected PNA. Pt agreeable with plan. In my medical judgment there is currently no evidence of an immediate life- threatening or surgical condition. Discharge is therefore indicated at this time. Discharge treatment instructions, follow up instructions, and appropriate em ergency department return precautions were discussed with the patient and/or medical decision maker. Patient and/or medical decision maker expressed understanding of and agreed with the treatment plan, follow up instructions, and emergency department return precaution. All patient's and/or medical decision maker's questions were answered. Undiagnosed new problem with uncertain prognosis? @ -No Drug Therapy requiring intensive monitoring for toxicity (Heparin, Nitro, Insulin, Cardizem)? @ -No Were any procedures done? @ -No Diagnosis/symptom? @ Cough, Pneumonia Acute, or Chronic, or Acute on Chronic? @ Acute Uncomplicated (without systemic symptoms) or Complicated (systemic symptoms)? Uncomplicated Side effects of treatment? @ -No Exacerbation, Progression, or Severe Exacerbation? @ -No Poses a threat to life or bodily function? How? (Chest pain, [place], [place], pneumonia, PE, COPD, DKA, ARF, appy, cholecystitis, CVA, Diverticulitis, Homicidal, Suicidal, threat to staff... and all critical care pts) @Potentially, if continued to or allowed to continue to worsen however not at time of discharge - Lab Data Lab Results 01/17/24 Range/Units 05:11 Influenza Type A (PCR) Not Detected (Not Detectd) Influenza Type B (PCR) Not Detected (Not Detectd) RSV (PCR) Not Detected (Not Detectd) SARS-CoV-2 (PCR) Not Detected (Not Detectd) Disposition Clinical Impression: Pneumonia Disposition: HOME SELF-CARE Condition: Good Instructions (If sedation given, give patient instructions): Bacterial Pneumonia (DC) Additional Instructions: Every disease is a spectrum and a small chance still exists that a serious condition could develop, for this reason, please monitor yourself closely for new, changing or worsening symptoms, symptoms that persist beyond/ do not improve in the next 72 hours or after completion of antibiotics, coughing up thick sputum or blood, difficulty in breathing, chest pain, lower extremity swelling, fever, inability to tolerate/keep down fluids or your medications, inability to follow up with outpatient providers as instructed and should you experience these symptoms or should you have any further concerns for your wellbeing please return to the ED or call 911 immediately. PLEASE call your primary care physician as soon as possible to arrange / discuss plan for followup appointment. Appointment in the next 1-3 days is strongly encouraged if possible. PLEASE let us know here before you leave if there is anything further we can do to be of any assistance. Take care and feel Better! Prescriptions: Benzonatate [Tessalon Perles] 100 mg PO TID PRN 5 Days #15 capsule PRN Reason: Cough Azithromycin [Zithromax Z Pack] 1 tab PO DIRECTED #6 tab Is patient prescribed a controlled substance at d/c from ED?: No Referrals: Parag Maldonado MD [Primary Care Provider] - 1-2 days
--- NOTE | 2024-01-17 06:09 | XR ---
EXAMINATION TYPE: XR chest 2V DATE OF EXAM: 01/17/2024 COMPARISON: Chest x-ray November 07, 2022 HISTORY: Rhonchi left upper lobe TECHNIQUE: Frontal and lateral views of the chest are obtained. FINDINGS: Overlying sternal wires are redemonstrated. Evidence of prior cardiac valve surgery and sep rai closure device redemonstrated. There is some chronic parenchymal changes bilaterally without susp icious new focal air space opacity, pleural effusion, or pneumothorax seen. The cardiac silhouette s ize remains within normal limits. Age indeterminate fracture of the right posterior seventh rib noted . IMPRESSION: No acute cardiopulmonary process. Age-indeterminate fracture of the posterior right zarina nth rib. [facility], , 01/17/2024 6:07 AM
[2024-01-17 06:14] VITALS: BP 144/79; PULSE 104; RESP 20
== END 2024-01-17 07:28 | disposition home or self-care (01) ==
LOC: EC 05:00
DX: J18.9 Pneumonia, unspecified organism (principal); Z87.891 Personal history of nicotine dependence
CPT/HCPCS: 71046; 87636; 99283